=== PATIENT | female | born 1960 | race Caucasian/White ===

== ENCOUNTER 2018-10-26 08:49 | Outpatient (REF) | payer BC, SELFPAY ==
[2018-10-26 21:07] LABS: Hemoglobin A1C 6.1 % (4.5-6.2)
[2018-10-26 21:09] LABS: ALT 21 U/L (12-78); AST 14 U/L (15-37); Albumin 3.6 g/dL (3.4-5.0); Alkaline Phosphatase 69 U/L (46-116); Anion Gap 10.2 mmol/L (3-11); BUN 14 mg/dL (7-18); Bilirubin, Total 0.3 mg/dL (0.2-1.0); CO2 28.8 mmol/L (21.0-32.0); CREATININE 0.88 mg/dL (0.55-1.02); Calcium 9.2 mg/dL (8.5-10.1); Chloride 103 mmol/L (98-107); Cholesterol 199 mg/dL (50-200); Glucose 107 mg/dL (70-100); HDL Cholesterol 52 mg/dL (40-60); LDL CHOLESTEROL 123 mg/dL (<100); Potassium 4.3 mmol/L (3.5-5.1); Sodium 142 mmol/L (136-145); Total Protein 7.5 g/dL (6.4-8.2); Triglyceride 87 mg/dL (30-150)
== END 2018-10-26 09:09 ==
LOC: NCHCN 08:49
PROVIDERS: PCP Family Medicine; Visit Provider Family Medicine
DX: Z00.00 Encounter for general adult medical examination without abnormal findings (principal); R73.9 Hyperglycemia, unspecified; E66.3 Overweight
CPT/HCPCS: 80053; 80061; 83721; 83036

== ENCOUNTER 2018-11-02 09:25 | Outpatient (REF) | payer BC, SELFPAY ==
--- NOTE | 2018-11-02 08:45 | PAPFT_PTH ---
PATIENT: Vicki Huff [id number] AGE/SX: 58/F ROOM: RE11/02/[address]: Edward Romero : 1960 BED: DIS: 11/02/2018 SPEC #: [id number] RECD: 11/03/18 12:59 STATUS: DAVIN REQ #: [id number] KENDALL: 11/02/18 08:[address]: Edward Romero DEPT: [facility] Cytology RECD BY: Holley Del Rosario ENTERED: 11/03/18 12:59 SP TYPE: PAPFT OTHR DR: Sandra Cazares Tissues: 1 - CX/ENDOCX FOR PAP SMEARS Procedures: PAP THIN PREP/[facility] Screening HPV DNA PROBE Comments: [id number] (CHLAMYDIA/GC)
[2018-11-06 14:03] LABS: Chlamydia Result Negative; GC Result Negative; Specimen Description SEE COMMENTS
== END 2018-11-02 09:45 ==
LOC: NCHCN 09:25
PROVIDERS: PCP Family Medicine; Visit Provider Family Medicine
DX: Z00.00 Encounter for general adult medical examination without abnormal findings (principal); Z12.4 Encounter for screening for malignant neoplasm of cervix; Z11.51 Encounter for screening for human papillomavirus (HPV)
CPT/HCPCS: 87491; 87591; 88142; 87624

== ENCOUNTER 2020-01-25 11:16 | Outpatient (REF) | payer BC, SELFPAY ==
[2020-01-25 21:34] LABS: HCT 42.3 % (36.0-46.0); HGB 14.2 g/dL (12.0-15.5); Mean Corp. HGB Concentration 33.6 g/dL (32.0-36.0); Mean Corpuscular Hemoglobin 30.6 pg (27.0-33.0); Mean Corpuscular Volume 91.2 fL (80-95); Mean Platelet Volume 10.5 fL (8.0-11.0); Platelet Count 321 x1000/uL (130-400); RBC 4.64 m/cumm (4.00-5.20); RBC Distribution Width 13.5 % (11.7-14.6); White Blood Cell Count 6.56 k/cumm (4.4-10.8)
[2020-01-25 21:41] LABS: ALT 22 U/L (14-59); AST 18 U/L (15-37); Albumin 3.7 g/dL (3.4-5.0); Alkaline Phosphatase 60 U/L (46-116); Anion Gap 9.9 mmol/L (3-11); BUN 14 mg/dL (7-18); Bilirubin, Total 0.5 mg/dL (0.2-1.0); CO2 27.1 mmol/L (21.0-32.0); Calcium 8.8 mg/dL (8.5-10.1); Chloride 104 mmol/L (98-107); Estimated GFR 56.37 (mL/min/1.73m2); Glucose 105 mg/dL (74-106); Potassium 4.2 mmol/L (3.5-5.1); Sodium 141 mmol/L (136-145); Total Protein 7.5 g/dL (6.4-8.2)
[2020-01-25 21:45] LABS: Hemoglobin A1C 5.8 % (3.8-5.6)
[2020-01-28 06:51] LABS: Vitamin D 25 Total 29.6 ng/ml (30-100)
== END 2020-01-25 11:36 ==
LOC: NCHCN 11:16
PROVIDERS: PCP Family Medicine; Visit Provider Family Medicine
DX: Z00.00 Encounter for general adult medical examination without abnormal findings (principal); R73.03 Prediabetes; E66.3 Overweight
CPT/HCPCS: 80053; 82306; 85027; 83036

== ENCOUNTER 2020-01-31 09:21 | Outpatient (REF) | payer BC, SELFPAY ==
--- NOTE | 2020-01-31 08:30 | PAPFT_PTH ---
PATIENT: Vicki Huff [facility] U#:[id number] AGE/SX: 59/F ROOM: RE01/31/[address]: Edward Romero : 1960 BED: DIS: 01/31/2020 SPEC #: [id number] RECD: 02/01/20 12:49 STATUS: DAVIN REQ #: [id number] KENDALL: 01/31/20 08:[address]: Edward Romero DEPT: [facility] Cytology RECD BY: Holley Del Rosario ENTERED: 02/01/20 12:50 SP TYPE: PAPFT OTHR DR: Sandra Cazares Tissues: 1 - CX/ENDOCX FOR PAP SMEARS Procedures: PAP THIN PREP/UVM Screening HPV DNA PROBE Comments: [id number]
== END 2020-01-31 09:41 ==
LOC: NCHCN 09:21
PROVIDERS: PCP Family Medicine; Visit Provider Family Medicine
DX: Z12.4 Encounter for screening for malignant neoplasm of cervix (principal); Z00.00 Encounter for general adult medical examination without abnormal findings; Z11.51 Encounter for screening for human papillomavirus (HPV)
CPT/HCPCS: 88142; 87624

== ENCOUNTER 2020-07-25 10:50 | Outpatient (REF) | payer BC, SELFPAY ==
[2020-07-25 21:42] LABS: Anion Gap 8.6 mmol/L (3-11); BUN 16 mg/dL (7-18); CO2 28.4 mmol/L (21.0-32.0); Calcium 9.2 mg/dL (8.5-10.1); Chloride 105 mmol/L (98-107); Glucose 110 mg/dL (74-106); Potassium 4.2 mmol/L (3.5-5.1); Sodium 142 mmol/L (136-145)
[2020-07-25 21:46] LABS: Hemoglobin A1C 5.6 % (<5.7)
[2020-07-28 05:49] LABS: Vitamin D 25 Total 54.5 ng/ml (30-100)
== END 2020-07-25 11:10 ==
LOC: NCHCN 10:50
PROVIDERS: PCP Family Medicine; Visit Provider Family Medicine
DX: R73.03 Prediabetes (principal); R94.4 Abnormal results of kidney function studies; R79.89 Other specified abnormal findings of blood chemistry
CPT/HCPCS: 80048; 82306; 83036

== ENCOUNTER 2021-02-06 08:36 | Outpatient (REF) | payer BC, SELFPAY ==
[2021-02-06 14:23] LABS: HCT 44.4 % (36.0-46.0); HGB 14.7 g/dL (11.2-15.7); MCH 30.4 pg (27.0-33.0); MCHC 33.1 % (32.0-36.0); MCV 91.7 fL (80-95); MPV 10.3 fL (8.0-11.0); Platelet Count 296 10^3/uL (130-400); RBC 4.84 10^6/uL (3.93-5.22); RDW 13.2 % (11.7-14.6); RDW-SD 44.9 fL; WBC 7.67 10^3/uL (4.4-10.8)
[2021-02-06 14:48] LABS: ALT 24 U/L (14-59); AST 14 U/L (15-37); Albumin 3.6 g/dL (3.4-5.0); Alkaline Phosphatase 69 U/L (46-116); Anion Gap 10.5 mmol/L (3-11); BUN 15 mg/dL (7-18); Bilirubin, Total 0.5 mg/dL (0.2-1.0); CO2 27.5 mmol/L (21.0-32.0); CREATININE 0.9 mg/dL (0.55-1.02); Calculated LDL 131 mg/dL (<100); Chloride 104 mmol/L (98-107); Cholesterol 208 mg/dL (<200); Glucose 101 mg/dL (74-106); HDL Cholesterol 52 mg/dL (40-60); Potassium 4.4 mmol/L (3.5-5.1); Sodium 142 mmol/L (136-145); Total Protein 7.6 g/dL (6.4-8.2); Triglyceride 125 mg/dL (<150)
[2021-02-09 02:18] LABS: Vitamin D 25 Total 64.5 ng/mL (30-100)
== END 2021-02-06 08:37 | disposition home or self-care (01) ==
LOC: NCHCN 08:36
PROVIDERS: PCP Family Medicine; Visit Provider Family Medicine
DX: Z00.8 Encounter for other general examination (principal); E55.9 Vitamin D deficiency, unspecified; R73.03 Prediabetes; E66.3 Overweight
CPT/HCPCS: 80053; 80061; 82306; 85027

== ENCOUNTER 2021-02-13 08:15 | Outpatient (REF) | payer BC, SELFPAY ==
--- NOTE | 2021-02-13 11:55 | PAPFT_PTH ---
PATIENT: Vicki Huff LOC: [facility] U#:[id number] AGE/SX: 60/F ROOM: RE02/13/[address]: Edward Romero : 1960 BED: DIS: 02/13/2021 SPEC #: [id number] RECD: 02/14/21 11:38 STATUS: DAVIN REQ #: [id number] KENDALL: 02/13/21 11:[address]: Edward Romero DEPT: [facility] Cytology RECD BY: Jazmin Rosenbaum ENTERED: 02/14/21 11:39 SP TYPE: PAPFT OTHR DR: Sandra Cazares Tissues: 1 - CX/ENDOCX FOR PAP SMEARS Procedures: PAP THIN PREP/UVM Screening HPV DNA PROBE Comments: [id number] (HPV 16 & 18/45)
== END 2021-02-13 08:16 | disposition home or self-care (01) ==
LOC: NCHCN 08:15
PROVIDERS: PCP Family Medicine; Visit Provider Family Medicine
DX: Z12.4 Encounter for screening for malignant neoplasm of cervix (principal); Z00.00 Encounter for general adult medical examination without abnormal findings; Z87.42 Personal history of other diseases of the female genital tract; Z11.51 Encounter for screening for human papillomavirus (HPV); R87.810 Cervical high risk human papillomavirus (HPV) DNA test positive
CPT/HCPCS: 88142; 87624

== ENCOUNTER 2022-02-09 10:57 | Outpatient (REF) | payer BC, SELFPAY ==
[2022-02-09 15:30] LABS: Hemoglobin A1C 5.7 % (<5.7)
[2022-02-09 15:37] LABS: ALT 20 U/L (14-59); AST 21 U/L (15-37); Albumin 3.5 g/dL (3.4-5.0); Alkaline Phosphatase 69 U/L (46-116); Anion Gap 6.9 mmol/L (3-11); BUN 15 mg/dL (7-18); Bilirubin, Total 0.4 mg/dL (0.2-1.0); CO2 29.1 mmol/L (21.0-32.0); CREATININE 0.8 mg/dL (0.55-1.02); Calcium 8.9 mg/dL (8.5-10.1); Calculated LDL 133 mg/dL (<100); Chloride 103 mmol/L (98-107); Cholesterol 207 mg/dL (<200); Glucose 112 mg/dL (74-106); HDL Cholesterol 55 mg/dL (40-60); Potassium 3.7 mmol/L (3.5-5.1); Sodium 139 mmol/L (136-145); Total Protein 7.7 g/dL (6.4-8.2); Triglyceride 95 mg/dL (<150)
[2022-02-11 05:11] LABS: Vitamin D 25 Total 56.5 ng/mL (30-100)
== END 2022-02-09 10:58 | disposition home or self-care (01) ==
LOC: NCHCN 10:57
PROVIDERS: PCP Family Medicine; Visit Provider Family Medicine
DX: R73.03 Prediabetes (principal); E66.9 Obesity, unspecified; Z00.00 Encounter for general adult medical examination without abnormal findings; E55.9 Vitamin D deficiency, unspecified
CPT/HCPCS: 80053; 80061; 82306; 83036

== ENCOUNTER 2022-02-16 15:05 | Outpatient (REF) | payer BC, SELFPAY ==
--- NOTE | 2022-02-16 09:00 | PAPFT_PTH ---
PATIENT: Vicki Huff LOC: [facility] U#:[id number] AGE/SX: 61/F ROOM: RE02/16/[address]: Edward Romero : 1960 BED: DIS: 02/16/2022 SPEC #: [id number] RECD: 02/16/22 17:51 STATUS: DAVIN REQ #: [id number] KENDALL: 02/16/22 09:[address]: Edward Romero DEPT: [facility] Cytology RECD BY: Holley Del Rosario ENTERED: 02/16/22 17:51 SP TYPE: PAPFT OTHR DR: Sandra Cazares Tissues: 1 - CX/ENDOCX FOR PAP SMEARS Procedures: PAP THIN PREP/[facility] Screening HPV DNA PROBE Comments: [id number] (HPV 16 & 18/45)
== END 2022-02-16 15:06 | disposition home or self-care (01) ==
LOC: NCHCN 15:05
PROVIDERS: PCP Family Medicine; Visit Provider Family Medicine
DX: Z12.4 Encounter for screening for malignant neoplasm of cervix (principal); Z11.51 Encounter for screening for human papillomavirus (HPV); R87.810 Cervical high risk human papillomavirus (HPV) DNA test positive; Z00.00 Encounter for general adult medical examination without abnormal findings
CPT/HCPCS: 88142; 87624

== ENCOUNTER 2023-05-31 10:52 | Outpatient (REF) | payer BC, SELFPAY ==
--- NOTE | 2023-05-31 09:45 | PAPFT_PTH ---
PATIENT: Vicki Huff LOC: [facility]#:[id number] AGE/SX: 62/F ROOM: RE05/31/[address]: Edward Romero : 1960 BED: DIS: 05/31/2023 SPEC #: [id number] RECD: 05/31/23 17:23 STATUS: DAVIN REQ #: [id number] KENDALL: 05/31/23 09:[address]: Edward Romero DEPT: [facility] Cytology RECD BY: Holley Del Rosario ENTERED: 05/31/23 17:24 SP TYPE: PAPFT OTHR DR: Sandra Cazares Tissues: 1 - CX/ENDOCX FOR PAP SMEARS Procedures: PAP THIN PREP/UVM Screening HPV DNA PROBE Comments: [id number] (HPV 16 & 18/45)
[2023-05-31 16:44] LABS: ALT 24 U/L (14-59); AST 19 U/L (15-37); Albumin 3.6 g/dL (3.4-5.0); Alkaline Phosphatase 67 U/L (46-116); Anion Gap 10.9 mmol/L (3-11); BUN 9 mg/dL (7-18); Bilirubin, Total 0.4 mg/dL (0.2-1.0); CO2 26.1 mmol/L (21.0-32.0); CREATININE 0.8 mg/dL (0.55-1.02); Calcium 9.4 mg/dL (8.5-10.1); Calculated LDL 146 mg/dL (<100); Chloride 103 mmol/L (98-107); Cholesterol 231 mg/dL (<200); Estimated GFR 82.23 (mL/min/1.73m2); Glucose 117 mg/dL (74-106); HDL Cholesterol 55 mg/dL (40-60); Potassium 3.8 mmol/L (3.5-5.1); Sodium 140 mmol/L (136-145); Total Protein 8.3 g/dL (6.4-8.2); Triglyceride 150 mg/dL (<150)
[2023-05-31 17:23] LABS: Hemoglobin A1C 5.9 % (<5.7)
== END 2023-05-31 10:53 | disposition home or self-care (01) ==
LOC: NCHCN 10:52
PROVIDERS: PCP Family Medicine; Visit Provider Family Medicine
DX: Z12.4 Encounter for screening for malignant neoplasm of cervix (principal); Z11.51 Encounter for screening for human papillomavirus (HPV); E66.9 Obesity, unspecified; R73.03 Prediabetes; Z00.00 Encounter for general adult medical examination without abnormal findings; R87.810 Cervical high risk human papillomavirus (HPV) DNA test positive
CPT/HCPCS: 80053; 80061; 88142; 83036; 87624

== ENCOUNTER 2024-05-29 16:22 | Outpatient (REF) | payer MEDICARE, SELFPAY ==
[2024-05-29 15:32] LABS: Hemoglobin A1C 5.7 % (<5.7)
[2024-05-29 15:47] LABS: ALT 17 U/L (14-59); AST 19 U/L (15-37); Albumin 3.6 g/dL (3.4-5.0); Alkaline Phosphatase 80 U/L (46-116); Anion Gap 7.5 mmol/L (3-11); BUN 13 mg/dL (7-18); Bilirubin, Total 0.62 mg/dL (0.2-1.0); CO2 29.5 mmol/L (21.0-32.0); CREATININE 0.9 mg/dL (0.55-1.02); Calcium 9.3 mg/dL (8.5-10.1); Calculated LDL 119 mg/dL (<100); Chloride 106 mmol/L (98-107); Cholesterol 203 mg/dL (<200); Estimated GFR 70.95 (mL/min/1.73m2); Glucose 102 mg/dL (74-106); HDL Cholesterol 62 mg/dL (40-60); Potassium 4.2 mmol/L (3.5-5.1); Sodium 143 mmol/L (136-145); Total Protein 8.2 g/dL (6.4-8.2); Triglyceride 110 mg/dL (<150)
--- OUTSIDE RECORDS SUMMARY | 2024-05-29 16:30 | XMS_ITS ---
Author Organization Unknown Address [address] [place] [phone] Phone Care Team Providers Care Custom Dressmaker Name Role Phone [facility] Attending Unavailable DEVANTE Patel Primary Unavailable Social History Type Status Start Date End Date Code Code Syst em Smoking History Never smoker (Never Smoked) [id number] SNOMED CT Sex Female Hospital Discharge Instructions Should you have any questions prior to discharge, please contact a member of your healthcare team. If you have left the hospital and have any questions, please contact your primary care physician. Reason For Referral No Data Found Plan of Treatment No Data Found Personal Care Team Section Performer Name Performer Role Active Date Inactive Da te
--- OUTSIDE RECORDS SUMMARY | 2024-05-29 16:30 | XMS_ITS | Encounter Summary ---
Author Organization [facility] Address [address] [place] [address] Care Team Providers Care Validation Technician Name Role Phone Ashley Harvey CHUTE FEEDER Primary Care Provider [phone] Encounter Details Date Type Department Care Team (Late st Contact Info) Description 02/16/2021 Lab Requisition [facility] Pathology & Laboratory Medicine - [facility] [address] [place] [address] Roxanna Romero MD [address] [place] [address] [phone] Encounter for screening for malignant neoplasm of cervix; Encounter for general adult medical examination without abnormal findings Social History Tobacco Use Types Packs/Day Years Used Date Smoking Tobacco: Former Alcohol Use Standard Drinks/Week Comments Yes 0 (1 standard drink = 0.6 oz pur e alcohol) 12 drinks/week Sex and Gender Information Value Date Recorded Sex Assigned at Not on file Gender Identity Not on file Sexual Orientation Not on file documented as of this encounter Plan of Treatment Not on file documented as of this encounter Procedures Procedure Name Priority Date/Time Associated Diagnosis Comments PAP TEST Today 02/13/2021 11:55 EDT Encounter for screening for malignant neoplasm of cervix Encounter for general adult medical examination without abnormal findings HPV GENOTYPES 16 AND 18/45 Today 02/13/2021 11:55 EDT Encounter for screening for malignant neoplasm of cervix Encounter for general adult medical examination without abnormal findings HPV DNA DETECTION WITH GENOTYPING, PCR Today 02/13/2021 11:55 EDT Encounter for screening for malignant neoplasm of cervix Encounter for general adult medical examination without abnormal findings documented in this encounter Results * HPV GENOTYPES 16 AND 18/45 (02/13/2021 11:55 EDT) HPV High Risk type 16, PCR Negative Negative 03/05/2021 14:47 EDT [facility] HPV18/45 RNA (HPV18/45) Negative Negative 03/05/2021 14:47 EDT [facility] Papanicolaou smear specimen (specimen) CERVIX UTERI STRUCTURE / Unknown 02/13/2021 11:55 EDT 02/23/2021 13:49 EDT Roxanna Romero MD MICROBIOLOGY - GENERAL ORDERABLES Performing Organization Address [facility] Co de Phone Number [facility] [address] [place] [address] * (ABNORMAL) HUMAN PAPILLOMAVIRUS (HPV) DETECTION-HIGH RISK TYPES (02/13/2021 11:55 EDT) HPV other High Risk types, PCR Positive( A) Negative 03/05/2021 14:47 EDT [facility] Comment:E6 OR E7 mRNA from o ne or more types of HPV types 16,18,31,33,35,39,45,51,52,56,58,59,66, and 68 is detected by stock ranch supervisor mediated amplification. High and intermediate risk HPV types are associated with most squamous intraepithelial lesions and cervical cancers. Papanicolaou smear specimen (specimen) CERVIX UTERI STRUCTURE / Unknown 02/13/2021 11:55 EDT 02/23/2021 13:49 EDT Roxanna Romero MD MICROBIOLOGY - GENERAL ORDERABLES Performing Organization Address City/[facility]/ZIP Co de Phone Number [facility] [address] [place] [address] * PAP TEST (02/13/2021 11:55 EDT) Specimens A. Cervix and/or Endocervix , ThinPrep Imaging System with Manual Evaluation 03/05/2021 14:47 [facility] Specimen Adequacy Satisfactory for Evaluation - transformation zone component present 03/05/2021 14:47 [facility] General Categorization Negative for intraepithelial lesion or malignancy 03/05/2021 14:47 [facility] Descriptive Diagnosis Reactive cellular changes associated with inflammation present (includes repair). Shift in cinthia present suggestive of bacterial vaginosis. 03/05/2021 14:47 [facility] Attestation By the signature below, the attending physician certifies that they have personally conducted a gross and/or microscopic examination of the described specimens and rendered or confirmed the above diagnosis. 03/05/2021 14:47 [facility] at 1447 Clinical History See below 03/05/20 14:47 [facility] HPV The result for the Human Papillomavirus (HPV) Detection-High Risk Types is Positive . E6 OR E7 mRNA from one or more types of HPV types 16,18,31,33,35,39 ,45,51,52,56,58,5 9,66, and 68 is detected by stock ranch supervisor mediated amplification. High and intermediate risk HPV types are associated with most squamous intraepithelial lesions and cervical cancers. Testing was performed on specimen [id number] and was resulted on 02/26/2021 1352 EDT by WYATT, LAB INSTRUMENT RESULTS IN 03/05/2021 14:47 [facility] Genotyping 16 & 18/45 The results for the HPV Genotypes 16 and 18/45 are Negative for the HPV16 RNA and Negative for the HPV18/45 RNA (HPV18/45). Testing was performed on specimen [id number] and was resulted on 03/05/2021 1445 EDT by WYATT, LAB INSTRUMENT RESULTS IN 03/05/2021 14:47 [facility] Performing Lab [facility] 03/05/2021 14:47 [facility] Scanned Images 03/05/2021 14:47 [facility] Papanicolaou smear specimen (specimen) CERVIX UTERI STRUCTURE / Unknown 02/13/2021 11:55 EDT 02/16/2021 15:00 EDT Roxanna Romero MD PATHOLOGY ORD ERABLES [facility] [address] [place] [address] documented in this encounter Visit Diagnoses Diagnosis Encounter for screening for malignant neoplasm of cervix Screening for malignant neoplasm of the cervix Encounter for general adult medical examination without abnormal findings Unspecified general medical examination documented in this encounter Care Teams Validation Technician Relationship Specialty Start Date End Date Ashley Harvey NP [address] [place] [address] PCP - General 11/22/16 documented as of this encounter
--- OUTSIDE RECORDS SUMMARY | 2024-05-29 16:30 | XMS_ITS | Encounter Summary ---
Author Organization [facility] Address [address] [place] [address] Care Team Providers Care Peanut Picker Name Role Phone Ashley Harvey SUPERVISOR WARPING DEPARTMENT Primary Care Provider [phone] Encounter Details Date Type Department Care Team (Late st Contact Info) Description 06/01/2023 Lab Requisition [facility] Pathology & Laboratory Medicine - [facility] [address] [place] [address] Roxanna Romero MD [address] [place] [address] [phone] Encounter for screening for malignant neoplasm of [...] Date/Time Associated Diagnosis Comments PAP TEST Today 05/31/2023 9:45 EDT Encounter for screening for malignant neoplasm of cervix Encounter for general adult medical examination without abnormal findings HPV GENOTYPES 16 AND 18/45 Today 05/31/2023 9:45 EDT Encounter for screening for malignant neoplasm of cervix Encounter for general adult medical examination without abnormal findings HPV DNA DETECTION WITH GENOTYPING, PCR Today 05/31/2023 9:45 EDT Encounter for screening for malignant neoplasm of cervix Encounter for general adult medical examination without abnormal findings documented in this encounter Results * HPV GENOTYPES 16 AND 18/45 (05/31/2023 9:45 EDT) HPV High Risk type 16, PCR Negative Negative 06/09/2023 12:27 EDT [facility] HPV18/45 RNA (HPV18/45) Negative Negative 06/09/2023 12:27 EDT [facility] Pap Test CERVIX UTERI STRUCTURE / Unknown 05/31/2023 9:45 EDT 06/07/2023 11:11 EDT Roxanna Romero MD MICROBIOLOGY - GENERAL ORDERABLES Performing Organization Address [facility] Co de Phone Number [facility] [address] [place] [address] * (ABNORMAL) HUMAN PAPILLOMAVIRUS (HPV) DETECTION-HIGH RISK TYPES (05/31/2023 9:45 EDT) HPV other High Risk types, PCR Positive( A) Negative 06/09/2023 12:27 EDT [facility] Comment:E6 OR E7 mRNA from o ne or more types of HPV types 16,18,31,33,35,39,45,51,52,56,58,59,66, and 68 is detected by nurse executive mediated amplification. High and intermediate risk HPV types are associated with most squamous intraepithelial lesions and cervical cancers. Pap Test CERVIX UTERI STRUCTURE / Unknown 05/31/2023 9:45 EDT 06/07/2023 11:11 EDT Roxanna Romero MD MICROBIOLOGY - GENERAL ORDERABLES Performing Organization Address City/[facility]/ZIP Co de Phone Number [facility] [address] [place] [address] * PAP TEST (05/31/2023 9:45 EDT) Specimens A. Cervix and/or Endocervix , ThinPrep Imaging System with Manual Evaluation 06/09/2023 12:27 [facility] Specimen Adequacy Satisfactory for Evaluation - transformation zone component present 06/09/2023 12:27 [facility] General Categorization Negative for intraepithelial lesion or malignancy 06/09/2023 12:27 [facility] Descriptive Diagnosis Shift in cinthia present suggestive of bacterial vaginosis. 06/09/2023 12:27 [facility] Attestation . 06/09/2023 12:27 [facility] at 1227 Clinical History See below 06/09/20 12:27 [facility] HPV The result for the Human Papillomavirus (HPV) Detection-High Risk Types is Positive . E6 OR E7 mRNA from one or more types of HPV types 16,18,31,33,35,39 ,45,51,52,56,58,5 9,66, and 68 is detected by nurse executive mediated amplification. High and intermediate risk HPV types are associated with most squamous intraepithelial lesions and cervical cancers. Testing was performed on specimen [id number] and was resulted on 06/08/2023 1501 EDT by WYATT, LAB INSTRUMENT RESULTS IN 06/09/2023 12:27 T [facility] Genotyping 16 & 18/45 The results for the HPV Genotypes 16 and 18/45 are Negative for the HPV16 RNA and Negative for the HPV18/45 RNA (HPV18/45). Testing was performed on specimen [id number] and was resulted on 06/09/2023 1227 EDT by WYATT, LAB INSTRUMENT RESULTS IN 06/09/2023 12:27 T [facility] Performing Lab [facility] 06/09/2023 12:27 [facility] Scanned Images 06/09/2023 12:27 [facility] Pap Test CERVIX UTERI STRUCTURE / Unknown 05/31/2023 9:45 EDT 06/01/2023 13:30 EDT Roxanna Romero MD PATHOLOGY ORD ERABLES [facility] [address] [place] [address] documented in this encounter Visit Diagnoses Diagnosis Encounter for screening for malignant neoplasm of cervix Screening for malignant neoplasm of the cervix Encounter for general adult medical examination without abnormal findings Unspecified general medical examination documented in this encounter Care Teams Peanut Picker Relationship Specialty Start Date End Date Ashley Harvey NP [address] [place], [place] [address] PCP - General 11/22/16 documented as of this encounter
--- OUTSIDE RECORDS SUMMARY | 2024-05-29 16:30 | XMS_ITS | Encounter Summary ---
Author Organization [facility] Address [address] [place] [address] Care Team Providers Care Aviation Technical Systems Specialist Name Role Phone Ashley Harvey INSPECTOR [employer] Primary Care Provider [phone] Encounter Details Date Type Department Care Team (Late st Contact Info) Description 02/04/2020 Lab Requisition [facility] Pathology & Laboratory Medicine - [facility] [address] [place] [address] Roxanna Romero MD [address] [place] [address] [phone] Encounter for screening for malignant neoplasm of [...] Date/Time Associated Diagnosis Comments PAP TEST Today 01/31/2020 9:10 EDT Encounter for screening for malignant neoplasm of cervix Encounter for general adult medical examination without abnormal findings HPV DNA DETECTION WITH GENOTYPING, PCR Today 01/31/2020 9:10 EDT Encounter for screening for malignant neoplasm of cervix Encounter for general adult medical examination without abnormal findings documented in this encounter Results * (ABNORMAL) HUMAN PAPILLOMAVIRUS (HPV) DETECTION-HIGH RISK TYPES (01/31/2020 9:10 EDT) HPV other High Risk types, PCR Positive( A) Negative 02/12/2020 22:10 EDT [facility] Comment:E6 OR E7 mRNA from o ne or more types of HPV types 16,18,31,33,35,39,45,51,52,56,58,59,66, and 68 is detected by water softener service supervisor mediated amplification. High and intermediate risk HPV types are associated with most squamous intraepithelial lesions and cervical cancers. Papanicolaou smear specimen (specimen) CERVIX UTERI STRUCTURE / Unknown 01/31/2020 9:10 EDT 02/11/2020 15:32 EDT Roxanna Romero MD MICROBIOLOGY - GENERAL ORDERABLES [facility] [address] [place] [address] * PAP TEST (01/31/2020 9:10 EDT) Specimens A. Cervix and/or Endocervix , ThinPrep Imaging System with Manual Evaluation 02/12/2020 22:10 T [facility] Specimen Adequacy Satisfactory for Evaluation - transformation zone component present 02/12/2020 22:10 [facility] General Categorization Negative for intraepithelial lesion or malignancy 02/12/2020 22:10 [facility] Descriptive Diagnosis Shift in cinthia present suggestive of bacterial vaginosis. 02/12/2020 22:10 T [facility] Attestation . 02/12/2020 22:10 [facility] at 2210 Clinical History SEE ORDER COMMENTS 02/12/2020 22:10 [facility] HPV The result for the Human Papillomavirus (HPV) Detection-High Risk Types is Positive . E6 OR E7 mRNA from one or more types of HPV types 16,18,31,33,35,39 ,45,51,52,56,58,5 9,66, and 68 is detected by water softener service supervisor mediated amplification. High and intermediate risk HPV types are associated with most squamous intraepithelial lesions and cervical cancers. Testing was performed on specimen [id number] and was resulted on 02/12/2020 2117 EDT by WYATT, LAB INSTRUMENT RESULTS IN 02/12/2020 22:10 EDT [facility] Scanned Images 02/12/2020 22:10 EDT [facility] Papanicolaou smear specimen (specimen) CERVIX UTERI STRUCTURE / Unknown 01/31/2020 9:10 EDT 02/04/2020 12:29 EDT Roxanna Romero MD PATHOLOGY ORD ERABLES [facility] [address] [place] [address] documented in this encounter Visit Diagnoses Diagnosis Encounter for screening for malignant neoplasm of cervix Screening for malignant neoplasm of the cervix Encounter for general adult medical examination without abnormal findings Unspecified general medical examination documented in this encounter Care Teams Aviation Technical Systems Specialist Relationship Specialty Start Date End Date Ashley Harvey NP [address] [place] [address] PCP - General 11/22/16 documented as of this encounter
--- OUTSIDE RECORDS SUMMARY | 2024-05-29 16:30 | XMS_ITS | Encounter Summary ---
Author Organization [facility] Address [address] [place] [address] Care Team Providers Care Tire Wrapper Name Role Phone Ashley Harvey COMPANY CONTROLLER Primary Care Provider [phone] Encounter Details Date Type Department Care Team (Late st Contact Info) Description 02/17/2022 Lab Requisition [facility] Pathology & Laboratory Medicine - [facility] [address] [place] [address] Roxanna Romero MD [address] [place] [address] [id number] Encounter for general adult medical examination without abnormal findings; Encounter for screening for malignant neoplasm of cervix Social History Tobacco Use Types Packs/Day Years [...] Date/Time Associated Diagnosis Comments PAP TEST Today 02/16/2022 9:00 EDT Encounter for general adult medical examination without abnormal findings Encounter for screening for malignant neoplasm of cervix HPV GENOTYPES 16 AND 18/45 Today 02/16/2022 9:00 EDT Encounter for general adult medical examination without abnormal findings Encounter for screening for malignant neoplasm of cervix HPV DNA DETECTION WITH GENOTYPING, PCR Today 02/16/2022 9:00 EDT Encounter for general adult medical examination without abnormal findings Encounter for screening for malignant neoplasm of cervix documented in this encounter Results * HPV GENOTYPES 16 AND 18/45 (02/16/2022 9:00 EDT) HPV High Risk type 16, PCR Negative Negative 02/25/2022 14:19 EDT [facility] HPV18/45 RNA (HPV18/45) Negative Negative 02/25/2022 14:19 EDT [facility] Papanicolaou smear specimen (specimen) CERVIX UTERI STRUCTURE / Unknown 02/16/2022 9:00 EDT 02/19/2022 16:20 EDT Roxanna Romero MD MICROBIOLOGY - GENERAL ORDERABLES Performing Organization Address [facility] Co de Phone Number [facility] [address] [place] [address] * (ABNORMAL) HUMAN PAPILLOMAVIRUS (HPV) DETECTION-HIGH RISK TYPES (02/16/2022 9:00 EDT) HPV other High Risk types, PCR Positive( A) Negative 02/25/2022 14:19 EDT [facility] Comment:E6 OR E7 mRNA from o ne or more types of HPV types 16,18,31,33,35,39,45,51,52,56,58,59,66, and 68 is detected by burlap roll coverer mediated amplification. High and intermediate risk HPV types are associated with most squamous intraepithelial lesions and cervical cancers. Papanicolaou smear specimen (specimen) CERVIX UTERI STRUCTURE / Unknown 02/16/2022 9:00 EDT 02/19/2022 16:20 EDT Roxanna Romero MD MICROBIOLOGY - GENERAL ORDERABLES Performing Organization Address City/[facility]/ZIP Co de Phone Number [facility] [address] [place] [address] * PAP TEST (02/16/2022 9:00 EDT) Specimens A. Cervix and/or Endocervix , ThinPrep Imaging System with Manual Evaluation 02/25/2022 14:19 [facility] Specimen Adequacy Satisfactory for Evaluation - transformation zone component present 02/25/2022 14:19 [facility] General Categorization Negative for intraepithelial lesion or malignancy 02/25/2022 14:19 [facility] Descriptive Diagnosis Shift in cinthia present suggestive of bacterial vaginosis. 02/25/2022 14:19 [facility] Attestation . 02/25/2022 14:19 [facility] at 1419 Clinical History SEE BELOW 02/26/20 14:19 [facility] HPV The result for the Human Papillomavirus (HPV) Detection-High Risk Types is Positive . E6 OR E7 mRNA from one or more types of HPV types 16,18,31,33,35,39 ,45,51,52,56,58,5 9,66, and 68 is detected by burlap roll coverer mediated amplification. High and intermediate risk HPV types are associated with most squamous intraepithelial lesions and cervical cancers. Testing was performed on specimen [id number] and was resulted on 02/22/2022 1722 EDT by WYATT, LAB INSTRUMENT RESULTS IN 02/25/2022 14:19 T [facility] Genotyping 16 & 18/45 The results for the HPV Genotypes 16 and 18/45 are Negative for the HPV16 RNA and Negative for the HPV18/45 RNA (HPV18/45). Testing was performed on specimen [id number] and was resulted on 02/25/2022 1355 EDT by WYATT, LAB INSTRUMENT RESULTS IN 02/25/2022 14:19 [facility] Performing Lab [facility] 02/25/2022 14:19 [facility] Scanned Images 02/25/2022 14:19 [facility] Papanicolaou smear specimen (specimen) CERVIX UTERI STRUCTURE / Unknown 02/16/2022 9:00 EDT 02/17/2022 14:10 EDT Roxanna Romero MD PATHOLOGY ORD ERABLES [facility] [address] [place] [address] documented in this encounter Visit Diagnoses Diagnosis Encounter for general adult medical examination without abnormal findings Unspecified general medical examination Encounter for screening for malignant neoplasm of cervix Screening for malignant neoplasm of the cervix documented in this encounter Care Teams Tire Wrapper Relationship Specialty Start Date End Date Ashley Harvey, COMPANY CONTROLLER [address] [place] [address] PCP - General 11/22/16 documented as of this encounter
--- OUTSIDE RECORDS SUMMARY | 2024-05-29 16:30 | XMS_ITS | Referral Summary ---
Author Organization [facility] Address [address] [place] [address] Care Team Providers Care Carry In Worker Name Role Phone Ashley Harvey RISK CONSULTING TREASURY DIRECTOR Primary Care Provider [phone] Allergies No known active allergies Medications Medication Sig Dispensed Refills Start Date End Date Status buPROPion (WELLBUTRIN) 100 mg tablet Take 150 mg by mouth 2 times daily. Active albuterol 90 mcg/actuation inhaler Inhale 180 mcg as directed every 4 hours. Active Multivitamins with Minerals tablet tablet Take 1 Tab by mouth daily. Active ERGOCALCIFEROL, VITAMIN D2, (VITAMIN D ORAL) Take by mouth. Active TURMERIC ROOT EXTRACT ORAL Take by mouth. Active ascorbic acid, vitamin C, (VITAMIN C) 500 mg tablet Take 500 mg by mouth daily. Active ibuprofen (MOTRIN) 200 mg tabletIndications:prn Take 200 mg by mouth every 6 hours. Active Active Problems Problem Noted Date Diagnosed Date Skin lesion of face 12/10/2016 Social History Tobacco Use Types Packs/Day Years Used Date Smoking Tobacco: Former Alcohol Use Standard Drinks/Week Comments Yes 0 (1 standard drink = 0.6 oz pur e alcohol) 12 drinks/week Sex and Gender Information Value Date Recorded Sex Assigned at Not on file Gender Identity Not on file Sexual Orientation Not on file Last Filed Vital Signs Vital Sign Reading Time Taken Comments Blood Pressure - - Pulse - - Temperature - - Respiratory Rate - - Oxygen Saturation - - Inhaled Oxygen Concentration - - Weight 79.4 kg (175 lb) 12/10/2016 1036 EDT Height 166.4 cm (5' 5.5) 12/10/2016 1036 EDT Body Mass Index 28.68 12/10/2016 1036 EDT Plan of Treatment Not on file Care Teams Carry In Worker Relationship Specialty Start Date End Date Ashley Harvey, RISK CONSULTING TREASURY DIRECTOR [address] [place] [address] PCP - General 11/22/16
--- OUTSIDE RECORDS SUMMARY | 2024-05-29 16:30 | XMS_ITS ---
Author Organization Unknown Address [address] [place] [phone] Phone Care Team Providers Care Enrichment Assistant Name Role Phone [facility] Portillo Attending Unavailable DEVANTE Patel Primary Unavailable Results XR HAND 3V RT* - Completed: 12/16/2023 12:52 LOINC: [facility] [place], [place] [address] [facility] PACS COKE CRUSHER OPERATOR REPORT Patient Name: BASSAM TINOCO MRN: Sex: : Age: [id number] O [id number] Account: Accession: Admit: StayType: [id number] 12/16/2023 O Ordered: Order ID: Submitted: Ordering Provider: 12/16/2023 12:45 [id number] [facility] Completed: Technologist: Resulted: 12/16/2023 12:49 SWAPNA 12/16/2023 13:01 FINAL REPORT EXAM: XR HAND 3V RT* CLINICAL HISTORY: Reason for Extrem: Pain. TECHNIQUE: 2D digital imaging was performed of the right hand. Images were obtained. AP, lateral and oblique views were obtained. COMPARISON: No exams were available for comparison FINDINGS: BONES: No acute fracture is present. No bony destructive lesion is seen. JOINTS: No dislocation present. There are mild degenerative changes seen in the hand particularly at the interphalangeal joints of the fingers. The joint spaces are otherwise well-maintained. SOFT TISSUE: Normal. IMPRESSION: Mild arthrosis of the hand. DATA REPOSITORY: RADIATION DOSE DELIVERED: Electronically signed by: Jonn Cheng Dictated: 12/16/2023 13:01 Social History Type Status Start Date End Date Code Code Syst em Smoking History Never smoker (Never Smoked) [id number] SNOMED CT Sex Female Hospital Discharge Instructions Should you have any questions prior to discharge, please contact a member of your healthcare team. If you have left the hospital and have any questions, please contact your primary care physician. Reason For Referral No Data Found Plan of Treatment No Data Found Encounters Encounter Diagnosis Start Date Code Code Sys tem Trigger thumb of right hand 12/16/2023 [id number] SNOMED-CT Personal Care Team Section Performer Name Performer Role Active Date Inactive Da te
--- OUTSIDE RECORDS SUMMARY | 2024-05-29 16:30 | XMS_ITS | Clinical Summary ---
Author Organization [facility] Address [address] [place] [address] Care Team Providers Care Drier And Pulverizer Tender Name Role Phone Ashley Harvey BEHAVIORAL ANALYST Primary Care Provider [phone] Allergies No known active allergies Medications Medication [...] Diagnosed Date Skin lesion of face 12/10/2016 Surgical History Surgery Date Site/Laterality Comments SECTION MALIGNANT SKIN LESION EXCISION 08/08/1993 - 08/07/1994 Melanoma of lower extremity Medical History Medical History Date Comments Cancer ([facility]) melanoma Family History Medical History Relation Comments Cancer Father Relation Status Comments Father Social History Tobacco Use Types Packs/Day Years Used Date Smoking Tobacco: Former Alcohol Use Standard Drinks/Week Comments Yes 0 (1 standard drink = 0.6 oz pur e alcohol) 12 drinks/week Sex and Gender Information Value Date Recorded Sex Assigned at Not on file Gender Identity Not on file Sexual Orientation Not on file Obstetrics History Last Filed Vital Signs Vital Sign Reading Time Taken Comments Blood Pressure - - Pulse - - Temperature - - Respiratory Rate - - Oxygen Saturation - - Inhaled Oxygen Concentration - - Weight 79.4 kg (175 lb) 12/10/2016 1036 EDT Height 166.4 cm (5' 5.5) 12/10/2016 1036 EDT Body Mass Index 28.68 12/10/2016 1036 EDT Plan of Treatment Health Maintenance Due Date Last Done Comments Hepatitis C Screen 1960 RSV Immunization ( o r 60+ Years) (1 - 1-dose 60+ series) 2018 COVID-19 Vaccine (2022-24 season) 2023 Fall Risk Screening 2023 Care Teams Drier And Pulverizer Tender Relationship Specialty Start Date End Date Ashley Harvey, BEHAVIORAL ANALYST [address] [place] [address] PCP - General 11/22/16
--- OUTSIDE RECORDS SUMMARY | 2024-05-29 16:31 | XMS_ITS | Encounter Summary ---
Author Organization [facility] Address [address] [place] [address] Care Team Providers Care Emr Trainer Name Role Phone Ashley Harvey ROUTE CARRIER Primary Care Provider [phone] Reason for Visit * Reason Comments Cyst right cheek * Consult (Routine) - Closed Specialty Diagnoses / Procedures Referred By Mona t Referred To Contact Plastic Surgery Diagnoses Cyst of skin Ashley Harvey, ROUTE CARRIER [address] [place] [address] Referral ID Status Reason Start Date Expiration Date Visits Re quested Visits Authorized [id number] Closed 1 1 Encounter Details Date Type Department Care Team (Late st Contact Info) Description 11/22/2016 10:00 EDT Office Visit [facility] Plastic, Reconstructive & Cosmetic Surgery - [address], [address] [place] [address] Daisy Silva MD [address] [facility] [address] [place] [address] Cheek mass (Primary Dx) Social History Tobacco Use Types Packs/Day Years Used Date Smoking Tobacco: Former Alcohol Use Standard Drinks/Week Comments Yes 0 (1 standard drink = 0.6 oz pur e alcohol) 12 drinks/week Sex and Gender Information Value Date Recorded Sex Assigned at Not on file Gender Identity Not on file Sexual Orientation Not on file documented as of this encounter Last Filed Vital Signs Vital Sign Reading Time Taken Comments Blood Pressure - - Pulse - - Temperature - - Respiratory Rate - - Oxygen Saturation - - Inhaled Oxygen Concentration - - Weight 81.6 kg (180 lb) 11/22/2016 0959 EDT Height 165.1 cm (5' 5) 11/22/2016 0959 EDT Body Mass Index 29.95 11/22/2016 0959 EDT documented in this encounter Progress Notes * Ernestina Moura RN - 11/22/2016 1000 EDT Images from the original note were not included. * Daisy Silva MD - 11/22/2016 1000 EDT Subjective: Patient ID: Vicki Huff is an 56 y.o. female. Chief Complaint Patient presents with ??? Cyst right cheek HPI There is no problem list on file for this patient. Vicki is a very pleasant 56 year old female with a history of malignant melanoma who presents with a right cheek mass. The mass has been present x 5 weeks and arose very quickly. No fevers, night sweats, or weight loss. She does note that she had a recent upper respiratory tract infection in the past week. The mass is asymptomatic and has not bled, crusted, or caused pain. Her primary care nurse erick hogan incised the lesion with no return of fluid, and no biopsy was performed. Past Medical History: Diagnosis Date ??? Cancer melanoma Past Surgical History: Procedure Laterality Date ??? SECTION ??? MALIGNANT SKIN LESION EXCISION 1993 Melanoma of lower extremity Family History Problem Relation Age of Onset ??? Cancer Father Social Social History Substance Use Topics ??? Smoking status: Former Smoker ??? Smokeless tobacco: None ??? Alcohol use Yes Comment: 12 drinks/week No current outpatient prescriptions on file prior to visit. No current facility-administered medications on file prior to visit. No Known Allergies ROS - See HPI Objective: Ht 165.1 cm (65) Wt 81.6 kg (180 lb) BMI 29.95 kg/m2 Physical Exam General: well-appearing female in no acute distress HEENT: 1.5cm pink soft plaque on the medial aspect of the right cheek at the level of the ala, wellcircumscribed. No punctum, no overlying skin changes or ulceration/crusting/bleeding. No palpable cervical lymphadenopathy. Assessment: 56 year old female with recent development of 1.5 cm plaque on right cheek. Today I recommended an incisional punch biopsy of the lesion for diagnosis to determine further management. However, the patient is traveling to [place] this week and refused biopsy today as I told her she would not be able to swim in the ocean for two weeks until the wound is healed. I advised her that this was against medical advice and that I strongly recommended biopsy today as not to delay any necessary treatment and the patient refused. She will return to see Dr. Brown on December 10 for biopsy when she returns from her vacation. Plan: No diagnosis found. Daisy Silva MD Med Orders Placed This Visit and Additions to the Medication List Medications ??? buPROPion (WELLBUTRIN) 100 mg tablet Sig: Take 150 mg by mouth 2 times daily. ??? albuterol 90 mcg/actuation inhaler Sig: Inhale 180 mcg as directed every 4 hours. ??? Multivitamins with Minerals tablet tablet Sig: Take 1 Tab by mouth daily. ??? ERGOCALCIFEROL, VITAMIN D2, (VITAMIN D ORAL) Sig: Take by mouth. ??? TURMERIC ROOT EXTRACT ORAL Sig: Take by mouth. ??? ascorbic acid, vitamin C, (VITAMIN C) 500 mg tablet Sig: Take 500 mg by mouth daily. I spent 30 minutes of face to face time with this patient and greater than 50% of the time was dedicated to counseling and coordination of care. documented in this encounter Plan of Treatment Not on file documented as of this encounter Visit Diagnoses Diagnosis Cheek mass- Primary Swelling, mass, or lump in head and neck documented in this encounter Historical Medications * This list may reflect changes made after this encounter. Medication Sig Dispensed Refills Start Date End Date ascorbic acid, vitamin C, (VITAMIN C) 500 mg tablet Take 500 mg by mouth daily. TURMERIC ROOT EXTRACT ORAL Take by mouth. ERGOCALCIFEROL, VITAMIN D2, (VITAMIN D ORAL) Take by mouth. Multivitamins with Minerals tablet tablet Take 1 Tab by mouth daily. albuterol 90 mcg/actuation inhaler Inhale 180 mcg as directed every 4 hours. buPROPion (WELLBUTRIN) 100 mg tablet Take 150 mg by mouth 2 times daily. added in this encounter Care Teams Emr Trainer Relationship Specialty Start Date End Date Ashley Harvey, OSEI [address] [place] [address] PCP - General 11/22/16 documented as of this encounter
--- OUTSIDE RECORDS SUMMARY | 2024-05-29 16:31 | XMS_ITS | Encounter Summary ---
Author Organization [facility] Address [address] [place] [address] Care Team Providers Care Crotch Breaker Name Role Phone Unavailable Primary Care Provider Unavailabl e Encounter Details Date Type Department Care Team (Late st Contact Info) Description 06/07/2008 Before PRISM Converted Visit (Maple) [facility] - Maple conversion [address] [place] [address] Kenya Anderson PA [address] [id number] Social History Tobacco Use Types Packs/Day Years Used Date Smoking Tobacco: Never Assessed Sex and Gender Information Value Date Recorded Sex Assigned at Not on file Gender Identity Not on file Sexual Orientation Not on file documented as of this encounter Progress Notes * Kenya Spencer MD - 02/27/2009 2211 EDT DIVISION OF DERMATOLOGY PROGRESS/FOLLOWUP NOTE - 06/07/2008 PROBLEM 1. History of malignant melanoma, superficial, status post excision 1992, left calf. 2. Atypical nevi. 3. Lentigo, left nasal bridge. 4. Actinic injury. 5. Seborrheic keratosis. SUBJECTIVE This 47-year-old white female returns to the clinic today with the above-stated history for reevaluation of the lentigo onher nasal bridge that the patient is quite certain that this has not changed.She actually thinks that she had a blackhead that she was able to extrude the contents, and the area seems to not be as dark as it was before. She has no other questions or concerns in reference to her skin. She has been well since her last visit. Patient has had no interval health status change. No constitutional symptoms today or any other complaints referable to the skin. OBJECTIVE On exam, this is otherwise a very pleasant, skin type II-III, closer to a III female in no apparentdistress with appropriate affect and demeanor. Examination of her face, on her nasal bridge, she has a homogenously-pigmented, light-brown, approximately 6 mm oval macule. She does have mild small opened comedones on the nasal bridge. The remainder of her exam is otherwise unremarkable. ASSESSMENT 1. Lentigo, nasal bridge. 2. Actinic injury. 3. History of atypical nevi. 4. History of malignant melanoma, unknown Rehan level, superficial left calf, status post excision 1992, no evidence of recurrence. 5. History of seborrheic keratosis. PLAN Patient education and reassurance. Patient will follow up on an annual basis for skin exam. She maycall or return in the interim if problems arise. We did review ABCDEs of melanoma as well as nonmelanoma skin cancer. The importance of sunscreen use, sun avoidance and self-examination was discussed. Supervising Physician Signed by Liliam Cazares MD 06/27/2008 11:05 Reviewed by Kenya Spencer PA-C 06/14/2008 17:04 Kenya Spencer PA-C Liliam Cazares MD - Kenya Spencer PA-C - GABY Job ID: [id number] Doc ID: [id number] cc: Norman Alves MD - GABY Job ID: [id number] Doc ID: [id number] cc: Norman Alves MD documented in this encounter Plan of Treatment Not on file documented as of this encounter Visit Diagnoses Not on filedocumented in this encounter
--- OUTSIDE RECORDS SUMMARY | 2024-05-29 16:31 | XMS_ITS | Encounter Summary ---
Author Organization [facility] Address [address] [place] [address] Care Team Providers Care Sports Nutritionist Name Role Phone Unavailable Primary Care Provider Unavailabl e Encounter Details Date Type Department Care Team (Late st Contact Info) Description 06/22/2005 Before PRISM Converted Visit (Maple) [facility] - Maple conversion [address] [place] [address] Kenya Anderson PA [address] [phone] Social History Tobacco Use Types Packs/Day Years Used Date Smoking Tobacco: Never Assessed Sex and Gender Information Value Date Recorded Sex Assigned at Not on file Gender Identity Not on file Sexual Orientation Not on file documented as of this encounter Progress Notes * Kenya Spencer PA - 10/09/2009 0414 EST DIVISION OF DERMATOLOGY - [facility] PROGRESS/FOLLOWUP NOTE - 06/22/2005 PROBLEM: Malignant melanoma status post excision 1994, left calf, no recurrence. SUBJECTIVE: This 44-year-old white female presents to clinic today for complete skin check with the above history. She was last seen by Dr. Nails in February 2003. She also has history of atypical nevi. She has notnoticed any kind of changing, bleeding, or scabbing moles that she is aware of, but she cannot lookat her back to assess any of those moles. She otherwise has been well since her last visit with Dr. Nails in 2002. She denies any constitutional symptoms today. She has no other questions or concerns regarding her skin at this time. OBJECTIVE: On exam this is an otherwise healthy appearing 44-year-old fair-skinned white female in no apparentdistress with appropriate affect and demeanor. Complete cutaneous exam was performed today excluding the genitalia. Diffusely scattered over her entire body she has greater than 200 dual pigmented, symmetric asymmetric macules and papules varying in size from 2 mm to no greater than 8 mm. On her right lower back she has a well demarcated, asymmetric, 4-5 mm brown and dark brown macule. On her left calf she has a well healed surgical scar with no repigmentation and no nodularity. She has no localized lymphadenopathy in her left groin or left popliteal. She has diffusely dry skin. The remainderof her cutaneous exam is otherwise unremarkable. ASSESSMENT: 1. Dry skin. 2. Malignant melanoma with no evidence of recurrence. 3. Papule/macule of uncertain behavior right low back, most likely atypical nevus vs. malignant melanoma. 4. Atypical nevi. PLAN: Patient education and reassurance. Recommended shave biopsy of the papule/macule of uncertain behavior. Patient consent obtained. Shave biopsy performed without adverse event. Please see procedure note. Wound care instructions given both verbally and in writing. I will notify patient without two weeks ofbiopsy results. She is to follow up on an annual basis for complete skin check. She may returnin the interim if problems arise. Signed by Sherie Nails MD 07/29/2005 17:06 Reviewed by Kenya Spencer PA-C 07/26/2005 16:49 Lauryn Castrejon PA-CAnita L Licata, MD Dictated by: Kenya Spencer PA-C Sherie Nails MD D: - Kenya Spencer PA-C A - lb Job ID: Document ID: [id number] cc: Norman Alves MD [facility], [address] [place] [address]* documented in this encounter Plan of Treatment Not on file documented as of this encounter Visit Diagnoses Not on filedocumented in this encounter
--- OUTSIDE RECORDS SUMMARY | 2024-05-29 16:31 | XMS_ITS | Encounter Summary ---
Author Organization [facility] Address [address] [place] [address] Care Team Providers Care Automobile Rental Representative Name Role Phone Ashley Harvey IT MANAGER Primary Care Provider [phone] Encounter Details Date Type Department Care Team (Late st Contact Info) Description 10/27/2019 Lab Requisition [facility] Pathology & Laboratory Medicine - [address] [address] Daniel Hernandez MD [address] [place] [address] [phone] Encounter for observation for suspected exposure to other biological agents ruled out; Cough; Fever, unspecified Social History Tobacco Use Types Packs/Day Years [...] Procedure Name Priority Date/Time Associated Diagnosis Comments COVID-19 TESTING Today 10/26/2019 14:0 0 EDT Encounter for observation for suspected exposure to other biological agents ruled out Cough Fever, unspecified documented in this encounter Results * COVID-19 TEST [facility] (10/26/2019 14:00 EDT) COVID-19 Result Not Detected Not Detected 10/29/2019 19:41 EDT [facility] Comment:Assayed at [facility] ENTIRE NASOPHARYNX / Unknown 10/26/2019 14:00 EDT 10/27/2019 11:25 EDT Daniel Hernandez MD MICROBIOLOGY - GENER AL ORDERABLES [facility] [address] [place] [address] documented in this encounter Visit Diagnoses Diagnosis Encounter for observation for suspected exposure to other biological agents ruled out Cough Fever, unspecified documented in this encounter Care Teams Automobile Rental Representative Relationship Specialty Start Date End Date Ashley Harvey, OSEI [address] [place], [place] [address] PCP - General 11/22/16 documented as of this encounter
--- OUTSIDE RECORDS SUMMARY | 2024-05-29 16:31 | XMS_ITS | Encounter Summary ---
Author Organization [facility] Address [address] [place] [address] Care Team Providers Care Ceramic Artist Name Role Phone Ashley Harvey PRESCHOOL DIRECTOR Primary Care Provider [phone] Reason for Visit * Reason Comments Cyst right side of face Encounter Details Date Type Department Care Team (Late st Contact Info) Description 12/10/2016 10:30 EDT Office Visit [facility] Plastic, Reconstructive & Cosmetic Surgery - [address], [address] [place] [address] Joseph Brown MD [address] [phone] Skin lesion of face (Primary Dx) Social History Tobacco Use Types [...] Body Mass Index 28.68 12/10/2016 1036 EDT documented in this encounter Progress Notes * Joseph Brown MD - 12/10/2016 1030 EDT The patient is here today for second opinion and evaluation of a right cheek skin lesion. The patient gives a history of 2 months of a rounded/nodular skin lesion of the right cheek initially the lesion was treated with an attempted incision and drainage for presumed diagnosis of cystoscopy. The patient relates to me today that no fluid and no was expressed at that time. She then was subsequently evaluated by my partner Dr. Daisy Silva. Dr. Silva had suggested a a biopsy to determine a diagnosis and subsequent management of this skin lesion. The patient declined intervention at that time because she was leaving for [place]. She now returns for her scheduled follow-up. Since her vacation in [place] she states the skin lesion of the right face has decreased in size. Ithas decreased in projection. It has decreased in sensitivity as well as redness. She states that she believes it is going away. On closer questioning she now recalls that she had a blackhead in this area. She remembers trying to squeeze it and this is when the lesion presented. On physical examination today she is a well-developed well-nourished woman in no apparent distress.She does have a visible nodular area within the central medial component of her right cheek. This measures 1 cm in diameter. There does appear to be a central punctum. There is no erythema. There is no cellulitis. On review of her clinical notes as well as her previous photograph the lesion has markedly decreased in size and has started to resolve. Assessment and plan: Skin lesion of uncertain etiology. Today I did offer her a punch biopsy up. However it is her preference to observe this. I do believe this is acceptable in that the lesion is resolving and appears to be much smaller and less angry. Plan is follow-up here in 2 weeks. End dictation documented in this encounter Plan of Treatment Not on file documented as of this encounter Visit Diagnoses Diagnosis Skin lesion of face- Primary Unspecified disorder of skin and subcutaneous tissue documented in this encounter Historical Medications * This list may reflect changes made after this encounter. Medication Sig Dispensed Refills Start Date End Date ibuprofen (MOTRIN) 200 mg tabletIndications:prn Take 200 mg by mouth every 6 hours. added in this encounter Care Teams Ceramic Artist Relationship Specialty Start Date End Date Ashley Harvey NP [address] [place] [address] PCP - General 11/22/16 documented as of this encounter
--- OUTSIDE RECORDS SUMMARY | 2024-05-29 16:31 | XMS_ITS | Encounter Summary ---
Author Organization [facility] Address [address] [place] [address] Care Team Providers Care Carpenter Supervisor Wooden Ship Name Role Phone Unavailable Primary Care Provider Unavailabl e Encounter Details Date Type Department Care Team (Late st Contact Info) Description 10/12/2013 Results Only [facility] Laboratory Services - [facility] ([facility] [address] [place], [place] [phone] José Antonio Etienne FNP [address] [place] [id number] Social History Tobacco Use Types Packs/Day Years Used Date Smoking Tobacco: Never Assessed Sex and Gender Information Value Date Recorded Sex Assigned at Not on file Gender Identity Not on file Sexual Orientation Not on file documented as of this encounter Plan of Treatment Not on file documented as of this encounter Procedures Procedure Name Priority Date/Time Associated Diagnosis Comments SURGICAL PATHOLOGY Routine 10/12/2013 20 :15 EST PAP TEST- RESULT ONLY Routine 10/12/2013 0:00 EST documented in this encounter Results * SURGICAL PATHOLOGY (10/12/2013 20:15 EST) Pathology Report: SURGICAL PATHOLOGY REPORT Reports generated via electronic interface contain original data; however they are lacking the format of the original report. Caution should be taken when reading/interpreti ng unformatted reports. Name: ? BASSAM HUFF ? Accession #: ? [id number] ? : ? 1960 (Age: 53) ??F ? Collect Date: ? 10/12/2013 ? Location: ? [facility] ? Receive Date: ? 10/15/2013 ? Provider: JOSÉ ANTONIO MOSHER Copy to: ? Final Pathologic Diagnosis: SKIN OF LABIA MAJORA, LEFT INFERIOR, SHAVE BIOPSY: - Acrochordon. ?? Microscopic Description: There is a polypoid papule with a papillated epidermal surface. ??The stratum corneum is composed of a relatively normal layer of orthokeratin. ??The dermis is composed of loose fibrous connective tissue and dilated vessels. ??(Dr. Fragoso)/n Document reviewed and electronically signed by: DONYA FRAGOSO MD Report ??Date: 10/17/2013 13:19 By the signature above, the attending physician certifies that he/she has personally conducted a gross and/or microscopic examination of the described specimens and rendered or confirmed the above diagnosis. Specimen(s) Received: Skin tag left inferior labia majora Clinical History: Skin tag left inferior labia majora Gross Description: ? Received in formalin labelled with proper patient identification (initials C, K) and skin tag L labia is a shave biopsy of an irregular ortez-troncoso wrinkled nodule (1.1 x 0.6 x 0.3 cm). Bisected and submitted in 1. Haylee Piper 10/16/2013 12:54 PM End of Report [facility] 10/12/2013 20:1 5 EST 10/15/2013 20:15 EDT José Antonio Etienne [facility] PATHOLOGY ORDERAB LES MAR [address] [address] * PAP TEST- RESULT ONLY (10/12/2013 0:00 EST) Pathology Report: CYTOPATHOLOGY REPORT Reports generated via electronic interface contain original data; however they are lacking the format of the original report. Caution should be taken when reading/interpreti ng unformatted reports. Name: ? BASSAM HUFF ? Accession #: ? [id number] ? : ? 1960 (Age: 53) ??F ?Collect Date: ? 10/12/2013 ? Location: ? [facility] ? Receive Date: ? 10/16/2013 ? Provider: JOSÉ ANTONIO ETIENNE CARPENTER MINE Copy to: ? Final Report SPECIMEN ADEQUACY ? Satisfactory for Evaluation - transformation zone component present GENERAL CATEGORIZATION ? Negative for Intraepithelial Lesion or Malignancy ?? Last Menstrual Period: 2011 Menstrual/Pregnanc y Status: ??Menopausal: 2012 Specimen/Source: ??Pap Test, Endocervix, ThinPrep Imaging System with manual evaluation Document reviewed and electronically signed by: ? KAISER Killian(ASCP) ? Report ??Date: 10/22/2013 14:29 HPV with Pap Test ? Date Ordered: ? 10/25/2013 ? Status: ?? Signed Out ?Date Complete: ? 10/29/2013 ? By: ??System Interface ? Date Reported: ? 10/29/2013 ? Interpretation RESULT: Negative for HPV. No E6 or E7 mRNA is detected from HPV types 16,18,31,33,35, 39,45,51,52,56,58, 59,66, and 68 by traditional maori health practitioner mediated amplification. Comments Document reviewed and electronically signed by: ? System Interface ? Report date: 10/29/2013 By the signature above, the attending physician certifies that he/she has personally conducted a gross and/or microscopic examination of the described specimens and rendered or confirmed the above diagnosis. End of Report [facility] 10/12/2013 10/16/2013 José Antonio Etienne [facility] PATHOLOGY ORDERAB LES Performing Organization Address City/State/[facility] Co de Phone Number [facility] [address] [place] [address] documented in this encounter Visit Diagnoses Not on filedocumented in this encounter
--- OUTSIDE RECORDS SUMMARY | 2024-05-29 16:31 | XMS_ITS | Encounter Summary ---
Author Organization [facility] Address [address] [place] [address] Care Team Providers Care Ice Skating Coach Name Role Phone Unavailable Primary Care Provider Unavailabl e Encounter Details Date Type Department Care Team (Latest Contact Info) Description 10/15/2013 17:11 EDT - 10/15/2013 23:59 EDT Hospital Encounter [address] [address] Unknown, Provider, Discharge Disposition: Home or Self Care Social History Tobacco Use Types Packs/Day Years Used Date Smoking Tobacco: Never Assessed Sex and Gender Information Value Date Recorded Sex Assigned at Not on file Gender Identity Not on file Sexual Orientation Not on file documented as of this encounter Discharge Disposition Disposition Code Departure Means Destination Home or Self Alf documented in this encounter Plan of Treatment Not on file documented as of this encounter Visit Diagnoses Not on filedocumented in this encounter
--- OUTSIDE RECORDS SUMMARY | 2024-05-29 16:31 | XMS_ITS | Encounter Summary ---
Author Organization [facility] Address [address] [place] [address] Care Team Providers Care Fusing Machine Feeder Name Role Phone Unavailable Primary Care Provider Unavailabl e Encounter Details Date Type Department Care Team (Latest Contact Info) Description 06/29/1999 9:40 EST - 06/29/1999 11:59 EST Hospital Encounter [facility] - Other [address] [place] [address] Miki Villa MD [address] [place] [phone] Unknown, Provider, Discharge Disposition: Auto Discharge Social History Tobacco Use Types Packs/Day Years Used Date Smoking Tobacco: Never Assessed Sex and Gender Information Value Date Recorded Sex Assigned at Not on file Gender Identity Not on file Sexual Orientation Not on file documented as of this encounter Discharge Disposition Disposition Code Departure Means Destination Auto Discharge documented in this encounter Plan of Treatment Not on file documented as of this encounter Visit Diagnoses Not on filedocumented in this encounter
--- OUTSIDE RECORDS SUMMARY | 2024-05-29 16:31 | XMS_ITS | Encounter Summary ---
Author Organization [facility] Address [address] [place] [address] Care Team Providers Care Hand Washer Name Role Phone Unavailable Primary Care Provider Unavailabl e Encounter Details Date Type Department Care Team (Late st Contact Info) Description 06/07/2008 9:10 EDT Hospital Encounter [facility] [address] [place] [address] Kenya Anderson PA [address] [phone] Social History Tobacco Use Types Packs/Day Years [...]
--- OUTSIDE RECORDS SUMMARY | 2024-05-29 16:31 | XMS_ITS | Encounter Summary ---
Author Organization [facility] Address [address] [place] [address] Care Team Providers Care Customer Support Executive Name Role Phone Ashley Harvey FILLER [employer]TER [employer] Primary Care Provider [phone] Encounter Details Date Type Department Care Team (Late st Contact Info) Description 11/02/2018 Results Only [facility] [phone] Bola Romero MD [address] [phone] Social History Tobacco Use Types Packs/Day Years [...] Name Priority Date/Time Associated Diagnosis Comments PAP TEST- RESULT ONLY Routine 11/02/2018 0:00 EDT documented in this encounter Results * PAP TEST- RESULT ONLY (11/02/2018 0:00 EDT) Pathology Report: CYTOPATHOLOGY REPORT Reports generated via electronic interface contain original data; however they are lacking the format of the original report. Caution should be taken when reading/interpreti ng unformatted reports. Name: ? BASSAM HUFF ? Accession #: ? [id number] ? : ? 1960 (Age: 58) ??F ?Collect Date: ? 11/02/2018 ? Location: ? [facility] ? Receive Date: ? 11/06/2018 ? Provider: BOLA ROMERO MD Copy to: ? Final Report SPECIMEN ADEQUACY ? Satisfactory for Evaluation - transformation zone component present GENERAL CATEGORIZATION ? Negative for Intraepithelial Lesion or Malignancy INTERPRETATION ? Shift in cinthia present suggestive of bacterial vaginosis. Menstrual/Pregnanc y Status: ??Post Menopausal Other: Additional clinical information: Z00.00 Z12.4 Specimen/Source: ??Pap Test, Cervix/Endocervix, ThinPrep Imaging System with manual evaluation Document reviewed and electronically signed by: ? Marixa Haines, CT(ASCP) ? Report ??Date: 11/08/2018 14:37 HPV with Pap Test ? Date Ordered: ? 11/08/2018 ? Status: ?? Signed Out ?Date Complete: ? 11/10/2018 ? By: ??System Interface ? Date Reported: ? 11/10/2018 ? Interpretation RESULT: POSITIVE FOR HIGH OR INTERMEDIATE RISK HPV. E6 OR E7 mRNA from one or more types of HPV types 16,18,31, 33,35,39,45,51,52, 56,58,59,66, and 68 is detected by circulation manager mediated amplification. High and intermediate risk HPV types are associated with most squamous intraepithelial lesions and cervical cancers. Comments Document reviewed and electronically signed by: ? System Interface ? Report date: 11/10/2018 By the signature above, the attending physician certifies that he/she has personally conducted a gross and/or microscopic examination of the described specimens and rendered or confirmed the above diagnosis. End of Report [facility] 11/02/2018 11/06/2018 Bola Romero MD PATHOLOGY ORD ERABLES [facility] [address] [place] [address] documented in this encounter Visit Diagnoses Not on filedocumented in this encounter Care Teams Customer Support Executive Relationship Specialty Start Date End Date Ashley Harvey NP [address] [place] [id number] PCP - General 11/22/16 documented as of this encounter
--- OUTSIDE RECORDS SUMMARY | 2024-05-29 16:31 | XMS_ITS | Encounter Summary ---
Author Organization [facility] Address [address] [place] [address] Care Team Providers Care Batch Mixing Truck Driver Name Role Phone Unavailable Primary Care Provider Unavailabl e Encounter Details Date Type Department Care Team (Late st Contact Info) Description 01/26/2008 Before PRISM Converted Visit (Maple) [facility] - Maple conversion [address] [place] [address] Kenya Anderson PA [address] [phone] Social History Tobacco Use Types Packs/Day Years Used Date Smoking Tobacco: Never Assessed Sex and Gender Information Value Date Recorded Sex Assigned at Not on file Gender Identity Not on file Sexual Orientation Not on file documented as of this encounter Progress Notes * Kenya Spencer MD - 05/09/2009 1038 EDT DIVISION OF DERMATOLOGY PROGRESS/FOLLOWUP NOTE - 01/26/2008 PROBLEM 1. History of malignant melanoma, superficial, status post excision in 1992, left calf. 2. Dry skin. 3. Atypical nevi. SUBJECTIVE This 47-year-old white female returns to the clinic today, last seen by me at the [facility] in 06/2005. She has been well since her last visit. She has noticed over the past year or so a brown spot on her nose. She has been keeping careful watch on this. She thinks maybe it has gotten a little darker, but it has not really increased in size. It has not changed in shape as far as she is aware. She has not noticed any other scabbing, bleeding, changing growths that she is concerned about. Patient has had no interval health status change. No constitutional symptoms today or any other complaints referable to the skin. OBJECTIVE On exam, this is an otherwise very pleasant 47-year-old skin type II to III female in no apparent distress with appropriate affect and demeanor. with appropriate affect and demeanor. The scalp, face,neck, back, chest, abdomen, intertriginous areas were examined. There were no lesions suspicious for malignancy. Nevi that were previously photographed appear unchanged and there were no new worrisome nevi. Diffusely scattered over the sun-exposed surfaces she has numerous hyper- and hypopigmented,less than 3mm macules. She has numerous stuck-on papules. She has, on her nasal bridge, a well-circumscribed, asymmetric, ortez and brown just under 2 mm macule. She has a well-healed surgical scar on the left calf. No nodularity. There is no lymphadenopathy in the posterior popliteal, groin, axillary, cervical chains. Her skin continues to be a bit dry. The remainder of her exam is otherwise unremarkable. ASSESSMENT 1. Lentigo versus other, nasal bridge. 2. Diffuse actinic injury. 3. Atypical nevi, no change. 4. Malignant melanoma, unknown Rehan level, superficial left calf, no evidence of recurrence. 5. Seborrheic keratoses. PLAN Patient education and reassurance. The patient will continue to keep an eye on this spot on her nasal bridge. I did offer to biopsytoday. The patient was hesitant on doing this. Therefore, a photograph was obtained and she will follow up in three months for reevaluation. However, if this increases in size, changes in size, shape, or color, I want her to return in the interim for biopsy and the patient showed a very good understanding of this. She will follow up as planned in three months, and she will continue to follow up on an annual basis, not every 2-1/2 years. Again, the patient showed agood understanding of this. Supervising Physician Signed by Nikolai Bai MD 02/23/2008 09:38 Reviewed by Kenya Spencer PA-C 02/15/2008 14:23 Kenya Spencer PA-C Nikolai Bai MD - Kenya Spencer PA-C - GABY Job ID: [id number] Doc ID: [id number] cc: Norman Alves MD documented in this encounter Plan of Treatment Not on file documented as of this encounter Visit Diagnoses Not on filedocumented in this encounter
--- OUTSIDE RECORDS SUMMARY | 2024-05-29 16:31 | XMS_ITS | Encounter Summary ---
Author Organization [facility] Address [address] [place] [address] Care Team Providers Care Carpet Installer Name Role Phone Unavailable Primary Care Provider Unavailabl e Encounter Details Date Type Department Care Team (Latest Contact Info) Description 06/22/2005 20:15 EST Hospital Encounter [facility] - Other [address] [place] [address] Norman Alves MD MadysonOmid sarabia MD [address] [place] [phone] Discharge Disposition: Home or Self Care Social History Tobacco Use Types Packs/Day Years Used Date Smoking Tobacco: Never Assessed Sex and Gender Information Value Date Recorded Sex Assigned at Not on file Gender Identity Not on file Sexual Orientation Not on file documented as of this encounter Discharge Disposition Disposition Code Departure Means Destination Home or Self Care documented in this encounter Plan of Treatment Not on file documented as of this encounter Visit Diagnoses Not on filedocumented in this encounter
--- OUTSIDE RECORDS SUMMARY | 2024-05-29 16:31 | XMS_ITS | Encounter Summary ---
Author Organization [facility] Address [address] [place] [address] Care Team Providers Care Medical Pathology Teacher Name Role Phone Unavailable Primary Care Provider Unavailabl e Encounter Details Date Type Department Care Team (Late st Contact Info) Description 01/26/2008 14:55 EDT Hospital Encounter [facility] [address] [place] [address] Kenya Anderson PA [address] [phone] Social History Tobacco Use Types Packs/Day Years [...]
--- OUTSIDE RECORDS SUMMARY | 2024-05-29 16:31 | XMS_ITS ---
Author Organization Unknown ALLERGIES AND ADVERSE REACTIONS No information ASSESSMENT No information CHIEF COMPLAINT No information MEDICATIONS No information OBJECTIVE DATA No information PHYSICAL EXAMINATION No information TREATMENT PLAN Planned Care Start Date Provider Encounter for Check-up [phone] PROBLEMS No information RESULTS No information REVIEW OF SYSTEMS No information SUBJECTIVE DATA No information VITAL SIGNS No information
--- OUTSIDE RECORDS SUMMARY | 2024-05-29 16:31 | XMS_ITS | Encounter Summary ---
Author Organization [facility] Address [address] [place] [address] Care Team Providers Care Cash Management Associate Name Role Phone Unavailable Primary Care Provider Unavailabl e Encounter Details Date Type Department Care Team (Late st Contact Info) Description 06/22/2005 Results Only [facility] Dermatology 5th Floor [facility] [address] [place] [address] Master Anderson PA [address] [phone] Social History Tobacco Use Types Packs/Day Years Used Date Smoking Tobacco: Never Assessed Sex and Gender Information Value Date Recorded Sex Assigned at Not on file Gender Identity Not on file Sexual Orientation Not on file documented as of this encounter Plan of Treatment Not on file documented as of this encounter Procedures Procedure Name Priority Date/Time Associated Diagnosis Comments SURGICAL PATHOLOGY Routine 06/22/2005 0:00 EST documented in this encounter Results * SURGICAL PATHOLOGY (06/22/2005 0:00 EST) Pathology Report: SURGICAL PATHOLOGY REPORT Reports generated via electronic interface contain original data; however they are lacking the format of the original report. Caution should be taken when reading/interpreti ng unformatted reports. Name: ? BASSAM HUFF ? Accession #: ? [id number] ? : ? 1960 (Age: 44) ??F ? Collect Date: ? 06/22/2005 ? Location: ? [facility] ? Receive Date: ? 06/24/2005 ? Provider: MASTER BRIAN Copy to: CARSON MATOS MD ? Final Pathologic Diagnosis: ? Skin of back, right low, shave biopsy: 1. ?Melanocytic nevus, junctional type, with unusual architectural features and mild cytologic atypia. ? - Nevus does not extend to edges of shave biopsy specimen in the plane of the sections ?? examined. Microscopic Description: ? The epidermis is hyperplastic with elongate and anastomosing rete ridges. There is a circumscribed proliferation of melanocytes within the epidermis that consists of nests and individual cells in a lentiginous pattern. ??The nests predominate and vary in size, shape, and spacing. ??Some of the nests bridge between rete ridges. ??Although the individual melanocytes are unevenly spaced in some areas, they show no tendency toward confluent growth or upward migration. The melanocytes are enlarged and show a mild degree of nuclear size and shape variation. ??There is papillary dermal fibroplasia. ??(Dr. Pal)/[facility] Document reviewed and electronically signed by: FRIDA PAL MD Report ??Date: 06/25/2005 16:28 By the signature above, the attending physician certifies that he/she has personally conducted a gross and/or microscopic examination of the described specimens and rendered or confirmed the above diagnosis. Specimen(s) Received: ? Shave bx R low back Clinical History: ? H/O MM; asymmetric 5 mm brown/dark brown macule R low back; R/O atypia vs MM; clinical diagnosis code: 238.2 Gross Description: ? Received in formalin labelled Huff and Rt low back is a shave biopsy of white-ortez skin measuring 0.9 x 0.6 x 0.1 cm. ??The cutaneous surface is an irregularly shaped dark brown macule measuring 0.5 x 0.3 cm. ??The specimen is bisected and submitted in one cassette. (Dr. Parkinson-EB)/mpl End of Report ZAID VARGAS 06/22/2005 06/24/2005 12: 32 EST Master BRIAN PATHOLOGY ORDERAB LES [facility] [address] [place] [address] documented in this encounter Visit Diagnoses Not on filedocumented in this encounter
== END 2024-05-29 16:23 | disposition home or self-care (01) ==
LOC: NCHCN 16:22
PROVIDERS: PCP Family Medicine; Visit Provider Family Medicine
DX: E66.9 Obesity, unspecified (principal); R73.03 Prediabetes
CPT/HCPCS: 80053; 80061; 83036

== ENCOUNTER 2024-06-05 16:59 | Outpatient (REF) | payer MEDICARE, SELFPAY ==
--- NOTE | 2024-06-05 10:00 | PAPFT_PTH ---
PATIENT: Vicki Huff LOC: [facility] U#:[id number] AGE/SX: 63/F ROOM: RE06/05/[address]: Edward Romero : 1960 BED: DIS: 06/05/2024 SPEC #: [id number] RECD: 06/05/24 18:01 STATUS: DAVIN REQ #: [id number] KENDALL: 06/05/24 10:[address]: Edward Romero DEPT: [facility] Cytology RECD BY: Holley Del Rosario ENTERED: 06/05/24 18:02 SP TYPE: PAPFT OTHR DR: Sandra Cazares Tissues: 1 - CX/ENDOCX FOR PAP SMEARS Procedures: PAP THIN PREP/[facility] Screening HPV DNA PROBE Comments: [id number] (HPV 16 & 18/45)
--- OUTSIDE RECORDS SUMMARY | 2024-06-05 17:02 | XMS_ITS ---
Author Organization Unknown Address [address] [place] [phone] Phone Care Team Providers Care Transmission Rebuilder Name Role Phone [facility] Portillo Attending Unavailable DEVANTE Patel Primary Unavailable Results XR HAND 3V RT* - Completed: 12/16/2023 12:52 LOINC: [facility] RADIOLOGY [place], [place] [address] [facility] PACS SLIDE FORMING MACHINE TENDER REPORT Patient Name: BASSAM TINOCO MRN: Sex: : Age: [id number] O 1960 63 Account: Accession: Admit: StayType: [id number] 12/16/2023 O Ordered: Order ID: Submitted: Ordering Provider: 12/16/2023 12:45 [id number] HOME HAIRSTON Completed: Technologist: Resulted: 12/16/2023 12:49 [...] em Smoking History Never smoker (Never Smoked) [id number] SNOMED CT Sex Female Hospital Discharge Instructions [...] tem Trigger thumb of right hand 12/16/2023 [id number] SNOMED-CT Personal Care Team Section Performer Name Performer Role Active Date Inactive Da te
--- OUTSIDE RECORDS SUMMARY | 2024-06-05 17:03 | XMS_ITS | Encounter Summary ---
Author Organization [facility] Address [address] [place] [address] Care Team Providers Care Wrapper Layer Name Role Phone Unavailable Primary Care Provider Unavailabl e Encounter Details Date Type Department Care Team (Late st Contact Info) Description 10/12/2013 Results Only [facility] Laboratory Services - [facility] ([facility]) [address], [place] [address] José Antonio Etienne FNP [address] [place] [address] [id number] Social History Tobacco Use Types Packs/Day Years [...] ? BASSAM HUFF ? Accession #: ? [id number] ? : ? 1960 (Age: 53) ??F [...] EST 10/15/2013 20:15 EDT José Antonio Etienne [facility] PATHOLOGY ORDERAB LES MAR [address] [address] * PAP TEST- RESULT ONLY (10/12/2013 0:00 EST) Pathology Report: CYTOPATHOLOGY REPORT Reports generated via electronic interface contain original data; however they are lacking the format of the original report. Caution should be taken when reading/interpreti ng unformatted reports. Name: ? BASSAM HUFF ? Accession #: ? [id number] ? : ? 1960 (Age: 53) ??F ?Collect Date: ? 10/12/2013 ? Location: ? [facility] ? Receive Date: ? 10/16/2013 ? Provider: JOSÉ ANTONIO ETIENNE VICE PRESIDENT DIVERSITY Copy to: ? Final Report SPECIMEN ADEQUACY [...] types 16,18,31,33,35, 39,45,51,52,56,58, 59,66, and 68 by polisher aluminum mediated amplification. Comments Document reviewed and electronically signed by: ? System Interface ? Report date: 10/29/2013 By the signature above, the attending physician certifies that he/she has personally conducted a gross and/or microscopic examination of the described specimens and rendered or confirmed the above diagnosis. End of Report ZIAD VARGAS 10/12/2013 10/16/2013 José Antonio Etienne [facility] PATHOLOGY ORDERAB LES Performing Organization Address City/State/[facility] Co de Phone Number [facility] [address] [place] [address] documented in this encounter Visit Diagnoses Not on filedocumented in this encounter
--- OUTSIDE RECORDS SUMMARY | 2024-06-05 17:03 | XMS_ITS | Clinical Summary ---
Author Organization [facility] Address [address] [place] [address] Care Team Providers Care Oceanologist Name Role Phone Ashley Harvey CARE CENTER MANAGER Primary Care Provider [phone] Allergies No known active allergies Medications Medication [...] Medical History Medical History Date Comments Cancer ([facility]) melanoma Family History Medical History Relation Comments [...] 2023 Fall Risk Screening 2023 Care Teams Oceanologist Relationship Specialty Start Date End Date Ashley Harvey, CARE CENTER MANAGER [address] [place] [address] PCP - General 11/22/16
--- OUTSIDE RECORDS SUMMARY | 2024-06-05 17:03 | XMS_ITS | Encounter Summary ---
Author Organization [facility] Address [address] [place] [address] Care Team Providers Care Scientific Informatics Leader Name Role Phone Ashley Harvey REGIONAL AGRONOMIST Primary Care Provider [phone] Reason for Visit * Reason Comments Cyst right cheek * Consult (Routine) - Closed Specialty Diagnoses / Procedures Referred By Mona t Referred To Contact Plastic Surgery Diagnoses Cyst of skin Ashley Harvey, REGIONAL AGRONOMIST [address] [place] [address] Referral ID Status Reason Start Date Expiration Date Visits Re quested Visits Authorized [id number] Closed 1 1 Encounter Details Date Type Department Care Team (Late st Contact Info) Description 11/22/2016 10:00 EDT Office Visit [facility] Plastic, Reconstructive & Cosmetic Surgery - [address], [address] [place] [address] Daisy Silva MD [address] [facility] [address] [place] [address] Cheek mass (Primary Dx) Social History Tobacco [...] management. However, the patient is traveling to [place] this week and refused biopsy today as [...] daily. added in this encounter Care Teams Scientific Informatics Leader Relationship Specialty Start Date End Date Ashley Harvey, OSEI [address] [place] [address] PCP - General 11/22/16 documented as of this encounter
--- OUTSIDE RECORDS SUMMARY | 2024-06-05 17:03 | XMS_ITS | Encounter Summary ---
Author Organization [facility] Address [address] [place] [address] Care Team Providers Care Bindery Machine Feeder Offbearer Name Role Phone Unavailable Primary Care Provider Unavailabl e Encounter Details Date Type Department Care Team (Latest Contact Info) Description 06/29/1999 9:40 EST - 06/29/1999 11:59 EST Hospital Encounter [facility] - Other [address] [place] [address] Miki Villa MD [address] [place] [id number] Unknown, ProviderMD Discharge Disposition: Auto Discharge Social History Tobacco [...]
--- OUTSIDE RECORDS SUMMARY | 2024-06-05 17:03 | XMS_ITS | Encounter Summary ---
Author Organization [facility] Address [address] [place] [address] Care Team Providers Care Occ Ther Name Role Phone Ashley Harvey ENGINEER AND GEOLOGIST Primary Care Provider [phone] Encounter Details Date Type Department Care Team (Late st Contact Info) Description 02/17/2022 Lab Requisition [facility] Pathology & Laboratory Medicine - [facility] [address] [place] [address] Roxanna Romero MD [address] [place] [address] [phone] Encounter for general adult medical examination without [...] 16, PCR Negative Negative 02/25/2022 14:19 EDT [facility] HPV18/45 RNA (HPV18/45) Negative Negative 02/25/2022 14:19 EDT [facility] Papanicolaou smear specimen (specimen) CERVIX UTERI STRUCTURE / Unknown 02/16/2022 9:00 EDT 02/19/2022 16:20 EDT Roxanna Romero MD MICROBIOLOGY - GENERAL ORDERABLES Performing Organization Address [facility] Co de Phone Number [facility] [address] [place] [address] * (ABNORMAL) HUMAN PAPILLOMAVIRUS (HPV) DETECTION-HIGH RISK TYPES (02/16/2022 9:00 EDT) HPV other High Risk types, PCR Positive( A) Negative 02/25/2022 14:19 EDT [facility] Comment:E6 OR E7 mRNA from o ne or more types of HPV types 16,18,31,33,35,39,45,51,52,56,58,59,66, and 68 is detected by laborer pipelines mediated amplification. High and intermediate risk HPV types are associated with most squamous intraepithelial lesions and cervical cancers. Papanicolaou smear specimen (specimen) CERVIX UTERI STRUCTURE / Unknown 02/16/2022 9:00 EDT 02/19/2022 16:20 EDT Roxanna Romero MD MICROBIOLOGY - GENERAL ORDERABLES Performing Organization Address City/[facility]/ZIP Co de Phone Number [facility] [address] [place] [address] * PAP TEST (02/16/2022 9:00 EDT) Specimens A. Cervix and/or Endocervix , ThinPrep Imaging System with Manual Evaluation 02/25/2022 14:19 [facility] Specimen Adequacy Satisfactory for Evaluation - transformation zone component present 02/25/2022 14:19 [facility] General Categorization Negative for intraepithelial lesion or malignancy 02/25/2022 14:19 [facility] Descriptive Diagnosis Shift in cinthia present suggestive of bacterial vaginosis. 02/25/2022 14:19 [facility] Attestation . 02/25/2022 14:19 [facility] at 1419 Clinical History SEE BELOW 02/26/20 14:19 [facility] HPV The result for the Human Papillomavirus (HPV) Detection-High Risk Types is Positive . E6 OR E7 mRNA from one or more types of HPV types 16,18,31,33,35,39 ,45,51,52,56,58,5 9,66, and 68 is detected by laborer pipelines mediated amplification. High and intermediate risk HPV types are associated with most squamous intraepithelial lesions and cervical cancers. Testing was performed on specimen [id number] and was resulted on 02/22/2022 1722 EDT by WYATT, LAB INSTRUMENT RESULTS IN 02/25/2022 14:19 T [facility] Genotyping 16 & 18/45 The results for the HPV Genotypes 16 and 18/45 are Negative for the HPV16 RNA and Negative for the HPV18/45 RNA (HPV18/45). Testing was performed on specimen [id number] and was resulted on 02/25/2022 1355 EDT by WYATT, LAB INSTRUMENT RESULTS IN 02/25/2022 14:19 [facility] Performing Lab [facility] 02/25/2022 14:19 [facility] Scanned Images 02/25/2022 14:19 [facility] Papanicolaou smear specimen (specimen) CERVIX UTERI STRUCTURE / Unknown 02/16/2022 9:00 EDT 02/17/2022 14:10 EDT Roxanna Romero MD PATHOLOGY ORD ERABLES [facility] [address] [place] [address] documented in this encounter Visit Diagnoses Diagnosis Encounter for general adult medical examination without abnormal findings Unspecified general medical examination Encounter for screening for malignant neoplasm of cervix Screening for malignant neoplasm of the cervix documented in this encounter Care Teams Occ Ther Relationship Specialty Start Date End Date Ashley Harvey, ENGINEER AND GEOLOGIST [address] [place] [address] PCP - General 11/22/16 documented as of this encounter
--- OUTSIDE RECORDS SUMMARY | 2024-06-05 17:03 | XMS_ITS | Encounter Summary ---
Author Organization [facility] Address [address] [place] [address] Care Team Providers Care Ferry Terminal Supervisor Name Role Phone Unavailable Primary Care Provider Unavailabl e Encounter Details Date Type Department Care Team (Latest Contact Info) Description 10/15/2013 17:11 EDT - 10/15/2013 23:59 EDT Hospital Encounter [address] [address] Unknown, Provider, Discharge Disposition: Home or Self Care Social History Tobacco Use Types Packs/Day Years Used Date Smoking Tobacco: Never Assessed Sex and Gender Information Value Date Recorded Sex Assigned at Not on file Gender Identity Not on file Sexual Orientation Not on file documented as of this encounter Discharge Disposition Disposition Code Departure Means Destination Home or Self [facility] documented in this encounter Plan of Treatment Not on file documented as of this encounter Visit Diagnoses Not on filedocumented in this encounter
--- OUTSIDE RECORDS SUMMARY | 2024-06-05 17:03 | XMS_ITS | Encounter Summary ---
Author Organization [facility] Address [address] [place] [address] Care Team Providers Care Electric Power Line Examiner Name Role Phone Unavailable Primary Care Provider Unavailabl e Encounter Details Date Type Department Care Team (Late st Contact Info) Description 06/22/2005 Before PRISM Converted Visit (Maple) [facility] - Maple conversion [address] [place] [address] Kenya Anderson PA [address] [phone] Social History Tobacco Use Types Packs/Day Years Used Date Smoking Tobacco: Never Assessed Sex and Gender Information Value Date Recorded Sex Assigned at Not on file Gender Identity Not on file Sexual Orientation Not on file documented as of this encounter Progress Notes * Kenya Spencer PA - 10/09/2009 0414 EST DIVISION OF DERMATOLOGY - [facility] PROGRESS/FOLLOWUP NOTE - 06/22/2005 PROBLEM: Malignant [...] A - lb Job ID: Document ID: [id number] cc: Norman Alves MD [facility], [address] [place] [address]* documented in this encounter Plan of Treatment Not on file documented as of this encounter Visit Diagnoses Not on filedocumented in this encounter
--- OUTSIDE RECORDS SUMMARY | 2024-06-05 17:03 | XMS_ITS | Encounter Summary ---
Author Organization [facility] Address [address] [place] [address] Care Team Providers Care Social Work Manager Name Role Phone Unavailable Primary Care Provider Unavailabl e Encounter Details Date Type Department Care Team (Late st Contact Info) Description 06/22/2005 Results Only [facility] Dermatology 5th Floor [facility] [address] [place] [address] Master Anderson PA [address] [phone] Social History Tobacco Use Types Packs/Day Years [...] ? BASSAM HUFF ? Accession #: ? [id number] ? : ? 1960 (Age: 44) ??F [...] variation. ??There is papillary dermal fibroplasia. ??(Dr. Pal)/[facility] Document reviewed and electronically signed by: FRIDA [...] PATHOLOGY ORDERAB LES [facility] [address] [place] [address] documented in this encounter Visit Diagnoses Not on filedocumented in this encounter
--- OUTSIDE RECORDS SUMMARY | 2024-06-05 17:03 | XMS_ITS | Encounter Summary ---
Author Organization [facility] Address [address] [place] [address] Care Team Providers Care Iron Molder Helper Name Role Phone Ashley Harvey CEMETERY WORKERS SUPERVISOR Primary Care Provider [phone] Encounter Details Date Type Department Care Team (Late st Contact Info) Description 02/04/2020 Lab Requisition [facility] Pathology & Laboratory Medicine - [facility] [address] [place] [address] Roxanna Romero MD [address] [place] [phone] Encounter for screening for malignant neoplasm of [...] PCR Positive( A) Negative 02/12/2020 22:10 EDT [facility] Comment:E6 OR E7 mRNA from o ne or more types of HPV types 16,18,31,33,35,39,45,51,52,56,58,59,66, and 68 is detected by ambulatory service representative mediated amplification. High and intermediate risk HPV types are associated with most squamous intraepithelial lesions and cervical cancers. Papanicolaou smear specimen (specimen) CERVIX UTERI STRUCTURE / Unknown 01/31/2020 9:10 EDT 02/11/2020 15:32 EDT Roxanna Romero MD MICROBIOLOGY - GENERAL ORDERABLES [facility] [address] [place] [address] * PAP TEST (01/31/2020 9:10 EDT) Specimens A. Cervix and/or Endocervix , ThinPrep Imaging System with Manual Evaluation 02/12/2020 22:10 T [facility] Specimen Adequacy Satisfactory for Evaluation - transformation zone component present 02/12/2020 22:10 [facility] General Categorization Negative for intraepithelial lesion or malignancy 02/12/2020 22:10 [facility] Descriptive Diagnosis Shift in cinthia present suggestive of bacterial vaginosis. 02/12/2020 22:10 T [facility] Attestation . 02/12/2020 22:10 [facility] at 2210 Clinical History SEE ORDER COMMENTS 02/12/2020 22:10 [facility] HPV The result for the Human Papillomavirus (HPV) Detection-High Risk Types is Positive . E6 OR E7 mRNA from one or more types of HPV types 16,18,31,33,35,39 ,45,51,52,56,58,5 9,66, and 68 is detected by ambulatory service representative mediated amplification. High and intermediate risk HPV types are associated with most squamous intraepithelial lesions and cervical cancers. Testing was performed on specimen [id number] and was resulted on 02/12/2020 2117 EDT by WYATT, LAB INSTRUMENT RESULTS IN 02/12/2020 22:10 EDT [facility] Scanned Images 02/12/2020 22:10 EDT [facility] Papanicolaou smear specimen (specimen) CERVIX UTERI STRUCTURE / Unknown 01/31/2020 9:10 EDT 02/04/2020 12:29 EDT Roxanna Romero MD PATHOLOGY ORD ERABLES [facility] [address] [place] [address] documented in this encounter Visit Diagnoses Diagnosis Encounter for screening for malignant neoplasm of cervix Screening for malignant neoplasm of the cervix Encounter for general adult medical examination without abnormal findings Unspecified general medical examination documented in this encounter Care Teams Iron Molder Helper Relationship Specialty Start Date End Date Ashley Harvey NP [address] [place] [address] PCP - General 11/22/16 documented as of this encounter
--- OUTSIDE RECORDS SUMMARY | 2024-06-05 17:03 | XMS_ITS | Encounter Summary ---
Author Organization [facility] Address [address] [place] [address] Care Team Providers Care Publication Specialist Name Role Phone Unavailable Primary Care Provider Unavailabl e Encounter Details Date Type Department Care Team (Late st Contact Info) Description 01/26/2008 Before PRISM Converted Visit (Maple) [facility] - Maple conversion [address] [place] [address] Kenya Anderson PA [address] [phone] Social History Tobacco Use Types Packs/Day Years [...] today, last seen by me at the [facility] in 06/2005. She has been well since [...] Kenya Spencer PA-C - GABY Job ID: [id number] Doc ID: [id number] cc: Norman Alves MD documented in this encounter Plan of Treatment Not on file documented as of this encounter Visit Diagnoses Not on filedocumented in this encounter
--- OUTSIDE RECORDS SUMMARY | 2024-06-05 17:03 | XMS_ITS | Referral Summary ---
Author Organization [facility] Address [address] [place] [address] Care Team Providers Care Cook House Laborer Name Role Phone Ashley Harvey BIOPHYSICS SCIENTIST Primary Care Provider [phone] Allergies No known active allergies Medications Medication [...] of Treatment Not on file Care Teams Cook House Laborer Relationship Specialty Start Date End Date Ashley Harvey, BIOPHYSICS SCIENTIST [address] [place] [address] PCP - General 11/22/16
--- OUTSIDE RECORDS SUMMARY | 2024-06-05 17:03 | XMS_ITS | Encounter Summary ---
Author Organization [facility] Address [address] [place] [address] Care Team Providers Care Supervisor Phosphoric Acid Name Role Phone Ashley Harvey LEAD NUCLEAR MEDICINE TECHNOLOGIST Primary Care Provider [phone] Encounter Details Date Type Department Care Team (Late st Contact Info) Description 06/01/2023 Lab Requisition [facility] Pathology & Laboratory Medicine - [facility] [address] [place] [address] Roxanna Romero MD [address] [place] [address] [id number] Encounter for screening for malignant neoplasm of [...] 16, PCR Negative Negative 06/09/2023 12:27 EDT [facility] HPV18/45 RNA (HPV18/45) Negative Negative 06/09/2023 12:27 EDT [facility] Pap Test CERVIX UTERI STRUCTURE / Unknown 05/31/2023 9:45 EDT 06/07/2023 11:11 EDT Roxanna Romero MD MICROBIOLOGY - GENERAL ORDERABLES Performing Organization Address [facility] Co de Phone Number [facility] [address] [place] [address] * (ABNORMAL) HUMAN PAPILLOMAVIRUS (HPV) DETECTION-HIGH RISK TYPES (05/31/2023 9:45 EDT) HPV other High Risk types, PCR Positive( A) Negative 06/09/2023 12:27 EDT [facility] Comment:E6 OR E7 mRNA from o ne or more types of HPV types 16,18,31,33,35,39,45,51,52,56,58,59,66, and 68 is detected by occupational therapist's assistant mediated amplification. High and intermediate risk HPV types are associated with most squamous intraepithelial lesions and cervical cancers. Pap Test CERVIX UTERI STRUCTURE / Unknown 05/31/2023 9:45 EDT 06/07/2023 11:11 EDT Roxanna Romero MD MICROBIOLOGY - GENERAL ORDERABLES Performing Organization Address City/[facility]/ZIP Co de Phone Number [facility] [address] [place] [address] * PAP TEST (05/31/2023 9:45 EDT) Specimens A. Cervix and/or Endocervix , ThinPrep Imaging System with Manual Evaluation 06/09/2023 12:27 [facility] Specimen Adequacy Satisfactory for Evaluation - transformation zone component present 06/09/2023 12:27 [facility] General Categorization Negative for intraepithelial lesion or malignancy 06/09/2023 12:27 [facility] Descriptive Diagnosis Shift in cinthia present suggestive of bacterial vaginosis. 06/09/2023 12:27 [facility] Attestation . 06/09/2023 12:27 [facility] at 1227 Clinical History See below 06/09/20 12:27 [facility] HPV The result for the Human Papillomavirus (HPV) Detection-High Risk Types is Positive . E6 OR E7 mRNA from one or more types of HPV types 16,18,31,33,35,39 ,45,51,52,56,58,5 9,66, and 68 is detected by occupational therapist's assistant mediated amplification. High and intermediate risk HPV types are associated with most squamous intraepithelial lesions and cervical cancers. Testing was performed on specimen [id number] and was resulted on 06/08/2023 1501 EDT by WYATT, LAB INSTRUMENT RESULTS IN 06/09/2023 12:27 T [facility] Genotyping 16 & 18/45 The results for the HPV Genotypes 16 and 18/45 are Negative for the HPV16 RNA and Negative for the HPV18/45 RNA (HPV18/45). Testing was performed on specimen [id number] and was resulted on 06/09/2023 1227 EDT by WYATT, LAB INSTRUMENT RESULTS IN 06/09/2023 12:27 T [facility] Performing Lab [facility] 06/09/2023 12:27 [facility] Scanned Images 06/09/2023 12:27 [facility] Pap Test CERVIX UTERI STRUCTURE / Unknown 05/31/2023 9:45 EDT 06/01/2023 13:30 EDT Roxanna Romero MD PATHOLOGY ORD ERABLES [facility] [address] [place] [address] documented in this encounter Visit Diagnoses Diagnosis Encounter for screening for malignant neoplasm of cervix Screening for malignant neoplasm of the cervix Encounter for general adult medical examination without abnormal findings Unspecified general medical examination documented in this encounter Care Teams Supervisor Phosphoric Acid Relationship Specialty Start Date End Date Ashley Harvey NP [address] [place], [place] [id number] PCP - General 11/22/16 documented as of this encounter
--- OUTSIDE RECORDS SUMMARY | 2024-06-05 17:03 | XMS_ITS | Encounter Summary ---
Author Organization [facility] Address [address] [place] [address] Care Team Providers Care Senior Quality Methods Specialist Name Role Phone Unavailable Primary Care Provider Unavailabl e Encounter Details Date Type Department Care Team (Latest Contact Info) Description 06/22/2005 20:15 EST Hospital Encounter [facility] - Other [address] [place] [address] Norman Alves MD MadysonOmid sarabia MD [address] [place] [phone] Discharge Disposition: Home or Self Care Social [...]
--- OUTSIDE RECORDS SUMMARY | 2024-06-05 17:03 | XMS_ITS | Encounter Summary ---
Author Organization [facility] Address [address] [place] [address] Care Team Providers Care Irrigation Flume Layer Name Role Phone Ashley Harvey DYE STAND LOADER Primary Care Provider [phone] Encounter Details Date Type Department Care Team (Late st Contact Info) Description 02/16/2021 Lab Requisition [facility] Pathology & Laboratory Medicine - [facility] [address] [place] [address] Roxanna Romero MD [address] [place] [address] [phone] Encounter for screening for malignant neoplasm of [...] 16, PCR Negative Negative 03/05/2021 14:47 EDT [facility] HPV18/45 RNA (HPV18/45) Negative Negative 03/05/2021 14:47 EDT [facility] Papanicolaou smear specimen (specimen) CERVIX UTERI STRUCTURE / Unknown 02/13/2021 11:55 EDT 02/23/2021 13:49 EDT Roxanna Romero MD MICROBIOLOGY - GENERAL ORDERABLES Performing Organization Address [facility] Co de Phone Number [facility] [address] [place] [address] * (ABNORMAL) HUMAN PAPILLOMAVIRUS (HPV) DETECTION-HIGH RISK TYPES (02/13/2021 11:55 EDT) HPV other High Risk types, PCR Positive( A) Negative 03/05/2021 14:47 EDT [facility] Comment:E6 OR E7 mRNA from o ne or more types of HPV types 16,18,31,33,35,39,45,51,52,56,58,59,66, and 68 is detected by telephone operators supervisor mediated amplification. High and intermediate risk HPV types are associated with most squamous intraepithelial lesions and cervical cancers. Papanicolaou smear specimen (specimen) CERVIX UTERI STRUCTURE / Unknown 02/13/2021 11:55 EDT 02/23/2021 13:49 EDT Roxanna Romero MD MICROBIOLOGY - GENERAL ORDERABLES Performing Organization Address City/[facility]/ZIP Co de Phone Number [facility] [address] [place] [address] * PAP TEST (02/13/2021 11:55 EDT) Specimens A. Cervix and/or Endocervix , ThinPrep Imaging System with Manual Evaluation 03/05/2021 14:47 [facility] Specimen Adequacy Satisfactory for Evaluation - transformation zone component present 03/05/2021 14:47 [facility] General Categorization Negative for intraepithelial lesion or malignancy 03/05/2021 14:47 [facility] Descriptive Diagnosis Reactive cellular changes associated with inflammation present (includes repair). Shift in cinthia present suggestive of bacterial vaginosis. 03/05/2021 14:47 [facility] Attestation By the signature below, the attending physician certifies that they have personally conducted a gross and/or microscopic examination of the described specimens and rendered or confirmed the above diagnosis. 03/05/2021 14:47 [facility] at 1447 Clinical History See below 03/05/20 14:47 [facility] HPV The result for the Human Papillomavirus (HPV) Detection-High Risk Types is Positive . E6 OR E7 mRNA from one or more types of HPV types 16,18,31,33,35,39 ,45,51,52,56,58,5 9,66, and 68 is detected by telephone operators supervisor mediated amplification. High and intermediate risk HPV types are associated with most squamous intraepithelial lesions and cervical cancers. Testing was performed on specimen [id number] and was resulted on 02/26/2021 1352 EDT by WYATT, LAB INSTRUMENT RESULTS IN 03/05/2021 14:47 [facility] Genotyping 16 & 18/45 The results for the HPV Genotypes 16 and 18/45 are Negative for the HPV16 RNA and Negative for the HPV18/45 RNA (HPV18/45). Testing was performed on specimen [id number] and was resulted on 03/05/2021 1445 EDT by WYATT, LAB INSTRUMENT RESULTS IN 03/05/2021 14:47 [facility] Performing Lab [facility] 03/05/2021 14:47 [facility] Scanned Images 03/05/2021 14:47 [facility] Papanicolaou smear specimen (specimen) CERVIX UTERI STRUCTURE / Unknown 02/13/2021 11:55 EDT 02/16/2021 15:00 EDT Roxanna Romero MD PATHOLOGY ORD ERABLES [facility] [address] [place] [address] documented in this encounter Visit Diagnoses Diagnosis Encounter for screening for malignant neoplasm of cervix Screening for malignant neoplasm of the cervix Encounter for general adult medical examination without abnormal findings Unspecified general medical examination documented in this encounter Care Teams Irrigation Flume Layer Relationship Specialty Start Date End Date Ashley Harvey NP [address] [place] [address] PCP - General 11/22/16 documented as of this encounter
--- OUTSIDE RECORDS SUMMARY | 2024-06-05 17:03 | XMS_ITS | Encounter Summary ---
Author Organization [facility] Address [address] [place] [address] Care Team Providers Care Aircraft Electronics Technical Officer Name Role Phone Unavailable Primary Care Provider Unavailabl e Encounter Details Date Type Department Care Team (Late st Contact Info) Description 06/07/2008 9:10 EDT Hospital Encounter [facility] [address] [place] [address] Kenya Anderson PA [address] [phone] Social History Tobacco Use Types Packs/Day Years [...]
--- OUTSIDE RECORDS SUMMARY | 2024-06-05 17:03 | XMS_ITS | Encounter Summary ---
Author Organization [facility] Address [address] [place] [address] Care Team Providers Care Collections Agent Name Role Phone Ashley Harvey SLAT BASKET TOP MAKER Primary Care Provider [phone] Reason for Visit * Reason Comments Cyst right side of face Encounter Details Date Type Department Care Team (Late st Contact Info) Description 12/10/2016 10:30 EDT Office Visit [facility]astic[facility]ive [facility] Cosmetic Surgery - [address], [address] [place] [address] Joseph Brown MD [address] [phone] Skin lesion of face (Primary [...] that time because she was leaving for [place]. She now returns for her scheduled follow-up. Since her vacation in [place] she states the skin lesion of the [...] hours. added in this encounter Care Teams Collections Agent Relationship Specialty Start Date End Date Ashley Harvey NP [address] [place] [address] PCP - General 11/22/16 documented as of this encounter
--- OUTSIDE RECORDS SUMMARY | 2024-06-05 17:03 | XMS_ITS | Encounter Summary ---
Author Organization [facility] Address [address] [place] [address] Care Team Providers Care Home Advisor Name Role Phone Ashley Harvey DOWEL STICKER OPERATOR Primary Care Provider [phone] Encounter Details Date Type Department Care Team (Late st Contact Info) Description 11/02/2018 Results Only [facility] [phone] Bola Romero MD [address] [phone] Social History Tobacco Use Types Packs/Day Years [...] ? BASSAM HUFF ? Accession #: ? [id number] ? : ? 1960 (Age: 58) ??F [...] 33,35,39,45,51,52, 56,58,59,66, and 68 is detected by ob/gyn mediated amplification. High and intermediate risk HPV [...] confirmed the above diagnosis. End of Report [facility] 11/02/2018 11/06/2018 Bola Romero MD PATHOLOGY ORD ERABLES [facility] [address] [place] [address] documented in this encounter Visit Diagnoses Not on filedocumented in this encounter Care Teams Home Advisor Relationship Specialty Start Date End Date Ashley Harvey NP [address] [place] [id number] PCP - General 11/22/16 documented as of this encounter
--- OUTSIDE RECORDS SUMMARY | 2024-06-05 17:03 | XMS_ITS ---
Author Organization Unknown Address [address] [place] [phone] Phone Care Team Providers Care Welder/Installer Name Role Phone [facility] Attending Unavailable DEVANTE Patel Primary Unavailable Social History Type Status Start Date End Date Code Code Syst em Smoking History Never smoker (Never Smoked) [id number] SNOMED CT Sex Female Hospital Discharge Instructions [...]
--- OUTSIDE RECORDS SUMMARY | 2024-06-05 17:03 | XMS_ITS | Encounter Summary ---
Author Organization [facility] Address [address] [place] [address] Care Team Providers Care Automobiles Salesperson Name Role Phone Ashley Harvey TRUCK DRIVER HELPER Primary Care Provider Encounter Details Date Type Department Care Team (Late st Contact Info) Description 10/27/2019 Lab Requisition [facility] Pathology & Laboratory Medicine - [address] [address] Daniel Hernandez MD [address] [place] [phone] Encounter for observation for suspected exposure to [...] Not Detected Not Detected 10/29/2019 19:41 EDT [facility] Comment:Assayed at [facility] ENTIRE NASOPHARYNX / Unknown 10/26/2019 14:00 EDT 10/27/2019 11:25 EDT Daniel Hernandez MD MICROBIOLOGY - GENER AL ORDERABLES [facility] [address] [place] [address] documented in this encounter Visit Diagnoses Diagnosis Encounter for observation for suspected exposure to other biological agents ruled out Cough Fever, unspecified documented in this encounter Care Teams Automobiles Salesperson Relationship Specialty Start Date End Date Ashley Harvey, OSEI [address] [place], [place] [phone] PCP - General 11/22/16 documented as of this encounter
--- OUTSIDE RECORDS SUMMARY | 2024-06-05 17:03 | XMS_ITS | Encounter Summary ---
Author Organization [facility] Address [address] [place] [address] Care Team Providers Care Automotive Refinish Technician Name Role Phone Unavailable Primary Care Provider Unavailabl e Encounter Details Date Type Department Care Team (Late st Contact Info) Description 06/07/2008 Before PRISM Converted Visit (Maple) [facility] - Maple conversion [address] [place] [address] Kenya Anderson PA [address] [phone] Social History Tobacco Use Types Packs/Day Years [...] Kenya Spencer PA-C - GABY Job ID: [id number] Doc ID: [id number] cc: Norman Alves MD - GABY Job ID: [id number] Doc ID: [id number] cc: Norman Alves MD documented in this encounter Plan of Treatment Not on file documented as of this encounter Visit Diagnoses Not on filedocumented in this encounter
--- OUTSIDE RECORDS SUMMARY | 2024-06-05 17:03 | XMS_ITS | Encounter Summary ---
Author Organization [facility] Address [address] [place] [address] Care Team Providers Care Cake Knocker Name Role Phone Unavailable Primary Care Provider Unavailabl e Encounter Details Date Type Department Care Team (Late st Contact Info) Description 01/26/2008 14:55 EDT Hospital Encounter [facility] [place] [address] [place] [address] Kenya Anderson PA [address] [phone] Social History Tobacco Use Types Packs/Day Years [...]
== END 2024-06-05 17:00 | disposition home or self-care (01) ==
LOC: NCHCN 16:59
PROVIDERS: PCP Family Medicine; Visit Provider Family Medicine
DX: Z11.51 Encounter for screening for human papillomavirus (HPV) (principal); Z01.419 Encounter for gynecological examination (general) (routine) without abnormal findings
CPT/HCPCS: 88142; 87624

== ENCOUNTER 2025-05-30 09:17 | Outpatient (REF) | payer MEDICARE, SELFPAY ==
[2025-05-30 16:21] LABS: Hemoglobin A1C 5.8 % (<5.7)
[2025-05-30 16:38] LABS: ALT 25 U/L (14-59); AST 18 U/L (15-37); Albumin 3.7 g/dL (3.4-5.0); Alkaline Phosphatase 69 U/L (46-116); Anion Gap 9.3 mmol/L (3-11); BUN 12 mg/dL (7-18); Bilirubin, Total 0.4 mg/dL (0.2-1.0); CO2 28.7 mmol/L (21.0-32.0); Calcium 9.2 mg/dL (8.5-10.1); Calculated LDL 139 mg/dL (<100); Chloride 100 mmol/L (98-107); Cholesterol 219 mg/dL (<200); Estimated GFR 70.51 (mL/min/1.73m2); Glucose 106 mg/dL (74-106); HDL Cholesterol 62 mg/dL (>or=50); Potassium 4.2 mmol/L (3.5-5.1); Sodium 138 mmol/L (136-145); Total Protein 8.4 g/dL (6.4-8.2); Triglyceride 92 mg/dL (<150); Vitamin D 25 Total 37 ng/mL (30-100)
== END 2025-05-30 09:18 | disposition home or self-care (01) ==
LOC: NCHCN 09:17
PROVIDERS: PCP Family Medicine; Visit Provider Family Medicine
DX: Z13.220 Encounter for screening for lipoid disorders (principal); R73.03 Prediabetes; Z13.6 Encounter for screening for cardiovascular disorders; E55.9 Vitamin D deficiency, unspecified
CPT/HCPCS: 80053; 80061; 82306; 83036